=== PATIENT | male | born 1950 | race Caucasian/White ===

== ENCOUNTER → 2021-11-11 15:00 | Outpatient (BNVA) | payer MEDICARE, OTHER, SELFPAY | PROVIDERS: PCP Internal Medicine; Visit Provider Urology | DX: N40.1 Benign prostatic hyperplasia with lower urinary tract symptoms (principal); N13.8 Other obstructive and reflux uropathy; R39.12 Poor urinary stream; R35.1 Nocturia | CPT/HCPCS: 51798; 99212 ==

== ENCOUNTER → 2022-11-11 08:38 | Outpatient (BNVA) | payer OTHER, MEDICARE, SELFPAY | PROVIDERS: PCP Internal Medicine; Visit Provider Urology | DX: N40.1 Benign prostatic hyperplasia with lower urinary tract symptoms (principal); N13.8 Other obstructive and reflux uropathy; R39.12 Poor urinary stream; R35.1 Nocturia; Z12.5 Encounter for screening for malignant neoplasm of prostate; Z79.899 Other long term (current) drug therapy | CPT/HCPCS: 51798 ==

== ENCOUNTER 2023-05-17 10:30 | Outpatient (AMB) | payer MEDICARE, OTHER, SELFPAY ==
--- NOTE | 2023-05-17 10:43 | A.OFFVIS_ITS ---
Intake Intake Visit Reasons: 6m/PVR Intake Note: Patient is present for PVR Urology Med: Terazosin Antibiotic Allergy: None Blood Thinner: None PVR: 0ml [facility] Technician Required: No Accompanied by: Self / Same As Patient Allergies No Known Allergies Allergy (Verified 05/17/23 10:51) HPI HPI Comments History of Present Illness Details Roque JONES is a very pleasant male. He is a patient of Dr. Cody. He is seen for the following urologic conditions. - lower urinary tract symptoms Interested GreenLight laser Schedule procedure August Bladder ultrasound Lower Urinary Tract Symptoms:? Current visit is for?further evaluation of, lower urinary tract symptoms, predominate obstructive symptoms.? Current treatment includes?terazosin 5 mg - BP issues Main cannot increased dose ? Prior treatments include?Prior evaluation 2011 for hematuria - enlarged prostate ?- flomax - minimally useful ?- finasteride - useful but had endocrine side effects with tender breasts ? Prostate Symptom Score?18 Moderate (9-19), Bother 3 - PSA 03/23 1.6 ? Symptoms include?09/18 incomplete emptying, weak stream, straining, and are progressing.? Results from testing include? cystoscopy ?Enlarged median lobe 2011 - trabeculations 09/18 - trabeculations, enlarged prostate ? renal/bladder us ?Yes ? date ?04/02/2017 ? PVR ?50 ? prostate size ?50 ? Prostate volume?30-50gm.? Review of Systems Const Denies chills and Denies fever(s) Card Reports no additional complaints and Denies syncope Resp Denies cough GI Denies abdominal pain and Denies heartburn Reports as per HPI and Denies change in libido Neuro Denies syncope Psych Denies change in libido Endo Denies change in libido Physical Exam Const General: cooperative, healthy appearing, comfortable and no acute distress Orientation/consciousness: patient oriented x3 HEENT Face and sinus: Yes normal facial exam Mouth: moist mucous membranes Neck Neck: Yes normal visual inspection, Yes full ROM and Yes trachea midline Chest Chest palpation & inspection: normal inspection of the chest Resp Effort & Inspection: normal respiratory effort, able to speak in complete sentences and no respiratory distress GI Inspection: Yes normal to inspection Back/Spine/Pelvis Cervical Spine: normal cervical lordosis Thoracic/Lumbar Spine: thoracic and lumbar spine normal to inspection Skin General skin exam: no rashes or lesions noted Neuro General: patient oriented x3, gait normal, tone normal and moves all extremities Extrem General: Yes normal to inspection and Yes capillary refill normal Office Procedures Post Void Residual Post Residual Void Post Void Residual (PVR): 0 66324-Turh Void Residual by ultrasound Assessment & Plan Assessment & Plan (1) Nocturia more than twice per night: Code(s): R35.1 - Nocturia (2) Weak urinary stream: Code(s): R39.12 - Poor urinary stream (3) BPH w urinary obs/LUTS: Code(s): N40.1 - Benign prostatic hyperplasia with lower urinary tract symptoms; N13.8 - Other obstructive and reflux uropathy Plan We discussed the nature of the decision and reasonable options for performing a prostate intervention. Interventions include TURP, GreenLight laser enucleation of the prostate, GreenLight laser ablation of the prostate, transurethral incision of the prostate, and I-Tend prostate procedure. Options such as medical therapy were discussed. The relative uncertainties and benefits related to each alternate procedure were adequately discussed. General surgical risks including, but not limited to, pain, bleeding, infection, myocardial infarction, pulmonary embolus, deep vein thrombosis and cerebrovascular accident which may result in further hospitalization were discussed. Full disclosure of the procedure as well as all major risks, benefits and complications were discussed including but not limited to damage to the urethra or bladder neck, recurrent BPH, retrograde ejaculation, bladder infection, urge, de kathy frequency, incomplete emptying, dysuria, remote chance of erectile dysfunction, epididymitis, and meatal stenosis. The success rate of the procedure was discussed. Success of the procedure in the short-term does not necessarily guarantee that long-term success will be maintained. Suitable follow up will need to be maintained. The patient showed understanding of discussion. An opportunity was provided for questions to be answered and wishes to proceed with the following procedure. - GreenLight laser prostatectomy August Orders: Orders AMB Post Void Residual by ultrasound 05/17/23 N39.8 - Other specified disorders of urinary system Patient Instructions: Imaging studies, laboratory and physical exam results were discussed and reviewed in detail. No major barriers to patient understanding were identified. An opportunity to ask questions regarding the treatment plan was provided. All questions were answered. The patient expressed understanding and agreement with the above treatment plan. The patient is aware they should contact our office by phone for worsening of their current condition or the appearance of new urologic symptoms. Compliance is encouraged with any medications and followup testing that is ordered. It is a privilege to participate in the urologic care of your patient. If you have any questions or concerns regarding treatment for the above conditions, or other urologic issues, please do not hesitate to contact me. The office teleph one contact is [phone]. This note is constructed using voice recognition software. While every effort has been made to ensure accuracy turpentine distiller errors may have been included. Yours sincerely, Dr Dakota Uribe MD, MARTITA [facility] - Urology Providers of Expert, Compassionate Care for the Genitourinary System Coding Level of Care Code Est Pt Level 4 (87698) Diagnoses Nocturia more than twice per night R35.1 Weak urinary stream R39.12 BPH w urinary obs/LUTS N40.1; N13.8 CPT Codes Post Residual Void - PVR CPT Code: 88111-Ocnx Void Residual by ultrasound ([id number])
== END 2023-05-17 11:39 | disposition home or self-care (01) ==
PROVIDERS: Visit Provider Urology
DX: N40.1 Benign prostatic hyperplasia with lower urinary tract symptoms (principal); R35.1 Nocturia; R39.12 Poor urinary stream; N13.8 Other obstructive and reflux uropathy
CPT/HCPCS: 99214

== ENCOUNTER → 2023-05-17 10:30 | Outpatient (BNVA) | payer MEDICARE, OTHER, SELFPAY | PROVIDERS: Visit Provider Urology | DX: N40.1 Benign prostatic hyperplasia with lower urinary tract symptoms (principal); N13.8 Other obstructive and reflux uropathy; R35.1 Nocturia; R39.12 Poor urinary stream | CPT/HCPCS: 51798 ==

== ENCOUNTER 2023-07-19 11:15 | Outpatient (REF) | payer MEDICARE, OTHER, SELFPAY ==
--- NOTE | ~2023-07-19 | US_ITS ---
EXAMINATION: US PELVIS LIMITED (BLADDER) CLINICAL INFORMATION: Benign prostatic hyperplasia with lower urinary tract symptoms. COMPARISON: Ultrasound kidneys and bladder 05/02/2017. TECHNIQUE: Real-time imaging of the bladder. FINDINGS: BLADDER: Well distended with trabeculated klein with 2 bladder diverticula. Bilateral ureteral jets are demonstrated. Prevoid bladder volume is 188 mL. Postvoid bladder volume is 83.6 mL. Enlarged heterogeneous prostate, volume 44.5 mL containing 0.8 x 0.8 x 0.8 cm cyst. US/US bladder IMPRESSION: Enlarged heterogeneous prostate containing subcentimeter cyst. Trabeculated bladder with diverticula and 84 mL post void residual.
== END 2023-07-19 11:16 | disposition home or self-care (01) ==
LOC: HO.US 11:15
PROVIDERS: PCP Internal Medicine; Visit Provider Urology
DX: N40.1 Benign prostatic hyperplasia with lower urinary tract symptoms (principal); N13.8 Other obstructive and reflux uropathy
CPT/HCPCS: 76857

== ENCOUNTER 2023-07-20 15:36 | Outpatient (AMB) | payer MEDICARE, OTHER, SELFPAY ==
--- NOTE | 2023-07-20 15:38 | MHC.OFFVIS ---
Intake Intake Visit Reasons: H&P Greenlight laser(Surgery 08/08) Intake Note: Patient is Present for Telephone Follow Up H&P Greenlight Urology Med: Terazosin Antibiotic Allergy: None Blood Thinner:None Allergies No Known Allergies Allergy (Verified 08/08/23 06:15) Medication List - Last Reconciled 08/08/23 by Dakota Uribe MD amoxicillin 2,000 mg PO aspirin 81 mg PO DAILY phenazopyridine (Pyridium) 100 mg PO TID PRN 5 days terazosin 5 mg PO BEDTIME 90 days HPI HPI Comments History of Present Illness Details Roque JONES is a very pleasant male. He is a patient of Dr. Cody. He is seen for the following urologic conditions. - lower urinary tract symptoms Telemedicine Evaluation 15 min Consultation [employer] Video attempted Questions answered regarding procedure - Timing - Use of Catheter Bladder ultrasound completed with persistent trabeculation Lower Urinary Tract Symptoms:? Current visit is for?further evaluation of, lower urinary tract symptoms, predominate obstructive symptoms.? Current treatment includes?terazosin 5 mg - BP issues Main cannot increased dose ? Prior treatments include?Prior evaluation 2011 for hematuria - enlarged prostate ?- flomax - minimally useful ?- finasteride - useful but had endocrine side effects with tender breasts ? Prostate Symptom Score?3/18 Moderate (9-19), Bother 3 - PSA 20 1.6 ? Symptoms include?09/18 incomplete emptying, weak stream, straining, and are progressing.? Results from testing include? cystoscopy ?Enlarged median lobe 2011 - trabeculations 09/18 - trabeculations, enlarged prostate ? renal/bladder us ?Yes ? date ?04/02/2017 ? prostate size ?50 ? Prostate volume?30-50gm.? PFSH Medical History Shoulder pain with history of repair of rotator cuff Prostatism Numbness Right hamstring injury Diplopia Vision loss of right eye TIA (transient ischemic attack) Aneurysm of aortic root Aortic aneurysm, thoracic Back pain Right shoulder injury Varicose veins of both lower extremities Non-recurrent unilateral inguinal hernia without obstruction or gangrene IBS (irritable bowel syndrome) Erectile dysfunction Spondylosis of lumbar region without myelopathy or radiculopathy BPH (benign prostatic hyperplasia) Asthma Aortic root dilatation Arthritis Closed dislocation of right patella Aortic insufficiency Surgical History Hx of left inguinal hernia repair Hx of rotator cuff surgery History of bunionectomy of right great toe Hx of colonoscopy S/P aortic valve replacement Social History Patient Tobacco Use Status: Never used Tobacco Review of Systems Const All systems reviewed & are unremarkable except as noted in HPI and below Reports no additional complaints Resp Reports no additional complaints GI Reports no additional complaints Reports as per HPI Musc Reports no additional complaints Physical Exam Telemedicine evaluation Appropriate responses Regular breathing rate and rhythm HEENT Head: Yes normal to inspection Ears: hearing grossly normal bilaterally Eyes General: appearance normal, both eyes and all related structures Neck Neck: Yes normal visual inspection Chest Chest palpation & inspection: normal inspection of the chest Resp Effort & Inspection: normal respiratory effort and able to speak in complete sentences Assessment & Plan Assessment & Plan (1) BPH w urinary obs/LUTS: Code(s): N40.1 - Benign prostatic hyperplasia with lower urinary tract symptoms; N13.8 - Other obstructive and reflux uropathy (2) Nocturia more than twice per night: Code(s): R35.1 - Nocturia Plan Risks, benefits and alternatives to therapy were discussed. These include but are not limited to infection, bleeding, damage to local organs and tissues, need for further interventions. Anesthetic risks regarding cardiac arrhythmia, blood clots, and potential mortality were discussed. The patient understands the typical recovery time and the outpatient nature of the procedure. After consideration of these risks the patient gives full informed consent and they wish to move ahead with the procedure. Greenlight laser procedure Patient Instructions: Imaging studies, laboratory and physical exam results were discussed and reviewed in detail. No major barriers to patient understanding were identified. An opportunity to ask questions regarding the treatment plan was provided. All questions were answered. The patient expressed understanding and agreement with the above treatment plan. The patient is aware they should contact our office by phone for worsening of their current condition or the appearance of new urologic symptoms. Compliance is encouraged with any medications and followup testing that is ordered. It is a privilege to participate in the urologic care of your patient. If you have any questions or concerns regarding treatment for the above conditions, or other urologic issues, please do not hesitate to contact me. The office telephone contact is [phone]. This note is constructed using voice recognition software. While every effort has been made to ensure accuracy e commerce strategist errors may have been included. Yours sincerely, Dr Dakota Uribe MD, [facility] - Urology Providers of Expert, Compassionate Care for the Genitourinary System Telehealth Telehealth Location of provider rendering services: practice address Location of patient: address on file Patient Identification confirmed using: Name, : Yes Telehealth method: video Patient verbally consented to treatment: Yes Patient verbally consented to billing insurance company: Yes Patient informed of any privacy concerns related to visit: Yes Coding Level of Care Code Tele Est Pt Level 3 (46168) Diagnoses BPH w urinary obs/LUTS N40.1; N13.8 Nocturia more than twice per night R35.1
== END 2023-07-20 16:21 | disposition home or self-care (01) ==
LOC: HO.HUSH 15:36
PROVIDERS: PCP Internal Medicine; Visit Provider Urology
DX: N40.1 Benign prostatic hyperplasia with lower urinary tract symptoms (principal); N13.8 Other obstructive and reflux uropathy; R35.1 Nocturia
CPT/HCPCS: 99213

== ENCOUNTER → 2023-07-20 15:36 | Outpatient (BNVA) | payer MEDICARE, OTHER, SELFPAY | PROVIDERS: PCP Internal Medicine; Visit Provider Urology ==

== ENCOUNTER 2023-08-08 05:55 | Day surgery (SDC) | payer MEDICARE, OTHER, SELFPAY ==
[2023-08-04 07:37] VITALS: BMI 24.5
--- NOTE | 2023-08-05 10:49 | HO.ANESPROP2 ---
Documented by User: Adry Lee NP 08/05/23 11:35 HPI - Anesthesia Eval Consult details Narrative: 73yo M for Laser Ablation Prostate w/Green Light Cardiac cleared. Last office visit 06/2023. S/P AVR and aortic root repair 2018 [facility] Active Problems Active Problems: All Active Problems (Updated 08/04/23 @ 07:32 by Camila Miller RN) Nocturia more than twice per night (Acute) Weak urinary stream (Acute) BPH w urinary obs/LUTS (Acute) Past Medical History Medical History Shoulder pain with history of repair of rotator cuff Prostatism Numbness Right hamstring injury Diplopia Vision loss of right eye TIA (transient ischemic attack) Aneurysm of aortic root Aortic aneurysm, thoracic Back pain Right shoulder injury Varicose veins of both lower extremities Non-recurrent unilateral inguinal hernia without obstruction or gangrene IBS (irritable bowel syndrome) Erectile dysfunction Spondylosis of lumbar region without myelopathy or radiculopathy BPH (benign prostatic hyperplasia) Asthma Aortic root dilatation Arthritis Closed dislocation of right patella Aortic insufficiency Surgical History Surgical History Hx of left inguinal hernia repair Hx of rotator cuff surgery History of bunionectomy of right great toe Hx of colonoscopy S/P aortic valve replacement Social History Social History Patient Tobacco Use Status: Never used Tobacco Use of substances other than those prescribed or required for medical reasons: Yes Are you DNR?: No Advance Directives: No Advance Directives Information Provided: Yes Meds Allergies Allergy/AdvReac Type Severity Reaction Status Date / Time No Known Allergies Allergy Verified 08/08/23 06:15 Home Medications Medication Instructions Recorded Confirmed Last Taken Type amoxicillin 500 mg capsule 2,000 mg PO 08/04/23 08/04/23 Unknown History aspirin 81 mg tablet,delayed 81 mg PO DAILY 08/04/23 08/04/23 Unknown History release Exam Height,Weight and Vital Signs: Height 5 ft 11 in Weight 79.832 kg Narrative Narrative: EKG 06/2023 per cardiac note: NSR ECHO 04/2023 1. LV systolic function is nml with EF 55-60% 2. Diastolic filling pattern is nml 3. LA size nml 4. Nml function aoritc bioprosthetic valve 5. Mild mitral regurg 6. No evidence of pulmo htn 7. Aortic root @ 4.6cm Assessment and Plan Assessment Anesthesia Assessment: Chart Reviewed Documented by User: Jassi Claros MD 08/08/23 07:23 [facility] Past Medical History Medical History Shoulder pain with history of repair of rotator cuff Prostatism Numbness Right hamstring injury Diplopia Vision loss of right eye TIA (transient ischemic attack) Aneurysm of aortic root Aortic aneurysm, thoracic Back pain Right shoulder injury Varicose veins of both lower extremities Non-recurrent unilateral inguinal hernia without obstruction or gangrene IBS (irritable bowel syndrome) Erectile dysfunction Spondylosis of lumbar region without myelopathy or radiculopathy BPH (benign prostatic hyperplasia) Asthma Aortic root dilatation Arthritis Closed dislocation of right patella Aortic insufficiency Family History Family history of problems with anesthesia: No Surgical History Surgical History Hx of left inguinal hernia repair Hx of rotator cuff surgery History of bunionectomy of right great toe Hx of colonoscopy S/P aortic valve replacement History of Problems with Anesthesia: No Social History Social History Patient Tobacco Use Status: Never used Tobacco Use of substances other than those prescribed or required for medical reasons: Yes Are you DNR?: No Advance Directives: No Advance Directives Information Provided: Yes Meds Allergies Allergy/AdvReac Type Severity Reaction Status Date / Time No Known Allergies Allergy Verified 08/08/23 06:15 Home Medications Medication Instructions Recorded Confirmed Last Taken Type amoxicillin 500 mg capsule 2,000 mg PO 08/04/23 08/04/23 Unknown History aspirin 81 mg tablet,delayed 81 mg PO DAILY 08/04/23 08/04/23 Unknown History release Exam Airway Mallampati Class: II TM Dist: >3cm Neck ROM: Full Loose/Missing/Broken Teeth: No Heart: [id number] Lungs: cta b/l Assessment and Plan Assessment Anesthesia Assessment: Anesthesia Plan Discussed Final Anesthetic Review Family History of Problems with Anesthesia: No History of Problems with Anesthesia: No NPO: Yes ASA Class: II Final Preanesthetic Review: No Changes in Pt Med Stat, Meds/Allgs Chart Reviewed, Consent Obtained/Reviewed and Anes Risks/Benef Reviewed Patient Risk: Intermediate Procedure Risk: Intermediate Assessment/Block/Sedation in SS: Assess/Block/Sedation-SS Anesthetic Plan Anesthetic Plan: GA and Agree w/ Assess. and Plan Disposition: Standard PACU
[2023-08-08 06:14] VITALS: BMI 25.0
[2023-08-08 06:27] VITALS: BP 135/65; PULSE 63; RESP 16; TEMP 36.9; O2SAT 98
[2023-08-08] MEDS: Lactated Ringers 1,000 ML 100 ML IVCONT (06:40)
--- NOTE | 2023-08-08 07:42 | MHC.SHP ---
Pre-Procedural Eval Section A - 24 Hr Update-Section A only Date of Service: 08/08/23 The patient is an INPATIENT: No Changes since office visit: No Cold of Flu in the past 2 weeks, No New Medical Problems, No Changes in Medication and No Patient answered all questions The patient has been examined within 24 hours of the surgical procedure. The History & Physical has been completed within 30 days and I have reviewed it.: No Section B - Complete if H&P > 30 days Chief Complaint: Benign prostatic hyperplasia with lower urinary tr Relevant Social History: None Present Medications: see Short Stay Collaborative assessment Medical History: No relevant PMH History of Previous Operations: No relevant previous surgery Allergies: Allergies Allergy/AdvReac Type Severity Reaction Status Date / Time No Known Allergies Allergy Verified 08/08/23 06:15 Review of Systems Sugical H&P ROS: Negative: Constitution, Cardiovascular, Respiratory, Neurological, Psychiatric, Hem-Onc, Allergic/Immunologic, Gastrointestinal, Genitourinary, Musculoskeletal, Integumentary, Endocrine and Eyes/Ears/Nose/Throat Exam Surgical H&P Exam: Normal: HEENT, Normal: Heart, Normal: Lungs, Normal: Extremities, Normal: Abdomen, Normal: Skin and Normal: Neurological Plan Diagnosis/Plan: Unchanged (laser prostatectomy) I have reviewed the history and physical and performed a pertinent physical examination on my patient. No changes have occurred unless specified. Time Spent With Patient Time: Total time managing care of this patient today ____ minutes.
--- NOTE | 2023-08-08 08:38 | P.OP_ITS ---
Operative Note Operative Note Date of Service: 08/08/23 Narrative: PreOperative Diagnosis: Bladder outlet obstruction Post Operative Diagnosis: Bladder outlet obstruction Procedure: GreenLight Laser Enucleation of the prostate CPT 19958 Surgeon: Dr Dakota Uribe Anesthesia: General Indications for procedure: Failed medical therapy History of bladder outlet obstruction. Treated with alpha-janel and other medications. Still with symptoms. On cystoscopy in office has prominent median lobe. Recommendation for prostate procedure with laser enucleation of prostate. Risks and benefits have been discussed. Focus was placed on development of retrograde ejaculation which is a normal part of this procedure. Procedure: After informed consent was verified the patient was brought to the operating room and placed in a supine position. Anesthesia was administered per protocol. Patient was placed in modified dorsal lithotomy position and prepped and draped in a sterile fashion. Safety pause time-out was confirmed. Antibiotics have been given. A Twenty-four Hungarian laser cystoscope was inserted per urethra. No abnormalities were found of the anterior and bulbar urethra. The bladder was examined and both ureteric orifices were seen in their normal positions away fro m the area of interest. The anatomy of the prostate was such that toward the bladder neck he had redundant mucosa and the ureteric orifice fell into the upper portion of the prostatic fossa. Care was taken to ensure that the bladder was fully dilated with fluid in order to move the ureteric orifice out of the potential operative field. Coordination with anesthesia was required in order to have the bladder appropriately relaxed. Using a GreenLight laser with settings of 80 w incisions were made at the 5 and 7 o'clock position. The incisions were taken down from the bladder neck down to the level of the veru. These were gradually deepened in order to define the lateral aspects of the median lobe area. Once clearly defined they will also extended in the lateral directions in order to create a deep groove. The median lobe was then ablated and enucleated tissue released into the bladder with the laser power increased to 120 W. This was performed quite carefully as the tissue was redundant infolding in a variant fashion. Once the median lobe had been removed due to the shape of the bladder and bladder neck decision was made not to proceed with lateral lobe removal as these were not impinging on the prostatic fossa area When this was had been completed debris and pieces of prostate were removed from the bladder with irrigation. Both ureteric orifices were reviewed again in shown to be patent in away from any areas of energy damage. The apical area was reviewed in any stray ooze was controlled. A 22 Hungarian 30 cc balloon Monk catheter was placed over a stylet into the bladder. Clear efflux was obtained upopn irrigation with a Cruz piston syringe. 30 cc was placed in the balloon and gentle traction was placed. A snap was used to hold tension on the catheter to control bleeding during patient moved and transported. A drainage bag was placed. Once transportation is complete to the PACU the snap will be removed. The patient tolerated the procedure well, he was extubated in the operating and transferred in a stable condition to the recovery area. Total Power 86 kW Lasing time 16:30 Pathology: Prostate tissue Drains: Monk catheter
[2023-08-08 08:44] VITALS: BP 105/50; PULSE 67; RESP 16; TEMP 36.4; O2SAT 95
[2023-08-08 08:49] VITALS: BP 91/48; PULSE 64; RESP 16; O2SAT 96
[2023-08-08 08:54] VITALS: BP 92/54; PULSE 59; RESP 18; O2SAT 97
[2023-08-08 08:59] VITALS: BP 109/61; PULSE 59; RESP 18; O2SAT 97
[2023-08-08] MEDS: Phenazopyridine HCL 100 MG TABLET PO (09:04)
[2023-08-08 09:14] VITALS: BP 114/57; PULSE 58; RESP 18; TEMP 36.6; O2SAT 100
--- NOTE | 2023-08-08 10:08 | PC.NURSE ---
patiet aware to f/u with dr. mensah on for catheter removal.
== END 2023-08-08 10:08 | disposition home or self-care (01) ==
PROVIDERS: PCP Internal Medicine; Visit Provider Urology
PROC: (CPT 52648; principal; 2023-08-08 07:30)
DX: N40.1 Benign prostatic hyperplasia with lower urinary tract symptoms (principal); N32.0 Bladder-neck obstruction; R35.1 Nocturia; R39.12 Poor urinary stream; N13.8 Other obstructive and reflux uropathy; J45.909 Unspecified asthma, uncomplicated; Z86.73 Personal history of transient ischemic attack (TIA), and cerebral infarction without residual deficits; Z79.899 Other long term (current) drug therapy
CPT/HCPCS: 52649; 88305; J1956; J2405; J2704; J3010

== ENCOUNTER → 2023-08-08 05:55 | Outpatient (BNV) | payer MEDICARE, OTHER, SELFPAY | PROVIDERS: PCP Internal Medicine; Visit Provider Urology | DX: N40.1 Benign prostatic hyperplasia with lower urinary tract symptoms (principal) | CPT/HCPCS: 52649 ==

== ENCOUNTER → 2023-08-10 11:06 | Outpatient (BNVA) | payer MEDICARE, OTHER, SELFPAY | PROVIDERS: PCP Internal Medicine; Visit Provider Urology ==

== ENCOUNTER 2023-09-16 11:51 | Outpatient (AMB) | payer MEDICARE, OTHER, SELFPAY ==
--- NOTE | 2023-09-16 11:58 | A.OFFVIS_ITS ---
Intake Intake Visit Reasons: Greenlight Post Op (08/08) Intake Note: Patient Is Present for Post Op Follow up Procedure Done: greenlight Urology Med: Terazosin, Oxybutynin Antibiotic Allergy:None Blood Thinner: Aspirin PVR: 0ml Allergies No Known Allergies Allergy (Verified 09/16/23 12:00) Medication List - Last Reconciled 09/16/23 by Dakota Uribe MD amoxicillin 2,000 mg PO aspirin 81 mg PO DAILY oxybutynin chloride ER 5 mg PO DAILY 14 days phenazopyridine (Pyridium) 100 mg PO TID PRN 5 days terazosin 5 mg PO BEDTIME 90 days HPI HPI Comments History of Present Illness0 Details Roque JONES is a very pleasant male. He is a patient of Dr. Cody. He is seen for the following urologic conditions. - lower urinary tract symptoms - erectile dysfunction Follow-up 6 weeks GreenLight laser procedure. PVR 0. Very happy with outcome and emptying Pathology negative Six-month follow-up PSA 08/27 GreenLight procedure Erectile dysfunction Has been present previously Would like to try on demand tadalafil Lower Urinary Tract Symptoms:? Current visit is for?further evaluation of, lower urinary tract symptoms, predominate obstructive symptoms.? Current treatment includes?terazosin 5 mg - BP issues Main cannot increased dose ? Prior treatments include?Prior evaluation 2011 for hematuria - enlarged prostate ?- flomax - minimally useful ?- finasteride - useful but had endocrine side effects with tender breasts ? Prostate Symptom Score?09/18 Moderate (9-19), Bother 3 - PSA 03/23 1.6 ? Symptoms include?09/18 incomplete emptying, weak stream, straining, and are progressing.? Results from testing include? cystoscopy ?Enlarged median lobe 2011 - trabeculations 09/18 - trabeculations, enlarged prostate ? renal/bladder us ?Yes ? date ?04/02/2017 ? prostate size ?50 ? Prostate volume?30-50gm.? [facility] Medical History (Updated 09/16/23 @ 12:23 by Dakota Uribe MD) Shoulder pain with history of repair of rotator cuff Prostatism Numbness Right hamstring injury Diplopia Vision loss of right eye TIA (transient ischemic attack) Aneurysm of aortic root Aortic aneurysm, thoracic Back pain Right shoulder injury Varicose veins of both lower extremities Non-recurrent unilateral inguinal hernia without obstruction or gangrene IBS (irritable bowel syndrome) Erectile dysfunction Spondylosis of lumbar region without myelopathy or radiculopathy BPH (benign prostatic hyperplasia) Asthma Aortic root dilatation Arthritis Closed dislocation of right patella Aortic insufficiency Surgical History Hx of left inguinal hernia repair Hx of rotator cuff surgery History of bunionectomy of right great toe Hx of colonoscopy S/P aortic valve replacement Social History Patient Tobacco Use Status: Never used Tobacco Review of Systems Const Denies chills and Denies fever(s) Card Reports no additional complaints and Denies syncope Resp Denies cough GI Denies abdominal pain and Denies heartburn Reports as per HPI and Denies change in libido Neuro Denies syncope Psych Denies change in libido Endo Denies change in libido Physical Exam Const General: cooperative, healthy appearing, comfortable and no acute distress Orientation/consciousness: patient oriented x3 HEENT Face and sinus: Yes normal facial exam Mouth: moist mucous membranes Neck Neck: Yes normal visual inspection, Yes full ROM and Yes trachea midline Chest Chest palpation & inspection: normal inspection of the chest Resp Effort & Inspection: normal respiratory effort, able to speak in complete sentences and no respiratory distress GI Inspection: Yes normal to inspection Back/Spine/Pelvis Cervical Spine: normal cervical lordosis Thoracic/Lumbar Spine: thoracic and lumbar spine normal to inspection Skin General skin exam: no rashes or lesions noted Neuro General: patient oriented x3, gait normal, tone normal and moves all extremities Extrem General: Yes normal to inspection and Yes capillary refill normal Office Procedures Post Void Residual Post Residual Void Post Void Residual (PVR): 0 [id number] Void Residual by ultrasound Assessment & Plan Assessment & Plan (1) Nocturia more than twice per night: Code(s): R35.1 - Nocturia (2) BPH w urinary obs/LUTS: Code(s): N40.1 - Benign prostatic hyperplasia with lower urinary tract symptoms; N13.8 - Other obstructive and reflux uropathy (3) Erectile dysfunction: Code(s): N52.9 - Male erectile dysfunction, unspecified Plan Six-month follow-up Trial tadalafil Orders: Orders Prostate Specific Antigen 6 Months N13.8 - Other obstructive and reflux uropathy, N40.1 - Benign prostatic hyperplasia with lower urinary tract symptoms AMB Post Void Residual by ultrasound Today N13.8 - Other obstructive and reflux uropathy, N40.1 - Benign prostatic hyperplasia with lower urinary tract symptoms Medications: New tadalafil On demand medication take 60 minutes before intended activity 20 mg PO ONCE PRN 30 tabs 0RF sexual activity 30 days N52.9 - Male erectile dysfunction, unspecified Discontinued phenazopyridine (Pyridium) Discontinued Reason: Patient Completed Course 100 mg PO TID 5 days PRN 15 tabs 0RF pain oxybutynin chloride ER Discontinued Reason: Patient Completed Course 5 mg PO DAILY 14 days 14 tabs 0RF N13.8 - Other obstructive and reflux uropathy, N32.81 - Overactive bladder, N40.1 - Benign prostatic hyperplasia with lower urinary tract symptoms Patient Instructions: Imaging studies, laboratory and physical exam results were discussed and reviewed in detail. No major barriers to patient understanding were identified. An opportunity to ask questions regarding the treatment plan was provided. All questions were answered. The patient expressed understanding and agreement with the above treatment plan. The patient is aware they should contact our office by phone for worsening of their current condition or the appearance of new urologic symptoms. Compliance is encouraged with any medications and followup testing that is ordered. It is a privilege to participate in the urologic care of your patient. If you have any questions or concerns regarding treatment for the above conditions, or other urologic issues, please do not hesitate to contact me. The office telephone contact is [phone]. This note is constructed using voice recognition software. While every effort has been made to ensure accuracy tree trimming supervisor errors may have been included. Yours sincerely, Dr Dakota Uribe MD, [facility] - Urology Providers of Expert, Compassionate Care for the Genitourinary System Coding Level of Care Code Est Pt Level 4 (19909) Diagnoses Nocturia more than twice per night R35.1 BPH w urinary obs/LUTS N40.1; N13.8 Erectile dysfunction N52.9 CPT Codes Post Residual Void - PVR CPT Code: 89586-Qdzb Void Residual by ultrasound ([id number])
== END 2023-09-16 12:27 | disposition home or self-care (01) ==
PROVIDERS: PCP Internal Medicine; Visit Provider Urology
DX: N40.1 Benign prostatic hyperplasia with lower urinary tract symptoms (principal); R35.1 Nocturia; N13.8 Other obstructive and reflux uropathy; N52.9 Male erectile dysfunction, unspecified
CPT/HCPCS: 99024

== ENCOUNTER → 2023-09-16 11:51 | Outpatient (BNVA) | payer MEDICARE, OTHER, SELFPAY | PROVIDERS: PCP Internal Medicine; Visit Provider Urology | DX: N40.1 Benign prostatic hyperplasia with lower urinary tract symptoms (principal); N13.8 Other obstructive and reflux uropathy; N52.9 Male erectile dysfunction, unspecified; R35.1 Nocturia; Z79.82 Long term (current) use of aspirin; Z79.899 Other long term (current) drug therapy | CPT/HCPCS: 51798; 99212 ==

== ENCOUNTER 2024-03-16 09:47 | Outpatient (AMB) | payer MEDICARE, OTHER, SELFPAY ==
--- NOTE | 2024-03-16 09:50 | A.OFFVIS_ITS ---
Intake Visit Reasons: 6M Follow up-Med Review(Needs PSA) Intake Note: Patient Is Present for Post Op Follow up Procedure Done: greenlight Urology Med: Terazosin, TADALAFIL Antibiotic Allergy:None Blood Thinner: Aspirin Lozenge Dough Mixer Required: No Allergies No Known Allergies Allergy (Verified 03/16/24 09:51) HPI Comments Details: Roque JONES is a very pleasant male. He is a patient of Dr. Cody. He is seen for the following urologic conditions. - lower urinary tract symptoms - erectile dysfunction Six-month follow-up 08/27 GreenLight procedure Flow has slowed but still emptying Uses on demand tadalafil occasionally Otherwise happy with current symptoms 12 month follow-up Erectile dysfunction Has been present previously On demand tadalafil Lower Urinary Tract Symptoms:? Current visit is for?further evaluation of, lower urinary tract symptoms, predominate obstructive symptoms.? Current treatment includes?terazosin 5 mg - BP issues Main cannot increased dose ? Prior treatments include?Prior evaluation 2011 for hematuria - enlarged prostate ?- flomax - minimally useful ?- finasteride - useful but had endocrine side effects with tender breasts ? Prostate Symptom Score?3/18 Moderate (9-19), Bother 3 - PSA 03/23 1.6 ? Symptoms include?09/18 incomplete emptying, weak stream, straining, and are progressing.? Results from testing include? cystoscopy ?Enlarged median lobe 2011 - trabeculations 09/18 - trabeculations, enlarged prostate ? renal/bladder us ?Yes ? date ?04/02/2017 ? prostate size ?50 ? Prostate volume?30-50gm.? [facility] Medical History (Updated 09/16/23 @ 12:23 by Dakota Uribe MD) Shoulder pain with history of repair of rotator cuff Prostatism Numbness Right hamstring injury Diplopia Vision loss of right eye TIA (transient ischemic attack) Aneurysm of aortic root Aortic aneurysm, thoracic Back pain Right shoulder injury Varicose veins of both lower extremities Non-recurrent unilateral inguinal hernia without obstruction or gangrene IBS (irritable bowel syndrome) Erectile dysfunction Spondylosis of lumbar region without myelopathy or radiculopathy BPH (benign prostatic hyperplasia) Asthma Aortic root dilatation Arthritis Closed dislocation of right patella Aortic insufficiency Surgical History Hx of left inguinal hernia repair Hx of rotator cuff surgery History of bunionectomy of right great toe Hx of colonoscopy S/P aortic valve replacement Social History Patient Tobacco Use Status: Never used Tobacco Review of Systems Const Denies chills and Denies fever(s) Card Reports no additional complaints and Denies syncope Resp Denies cough GI Denies abdominal pain and Denies heartburn Reports as per HPI and Denies change in libido Neuro Denies syncope Psych Denies change in libido Endo Denies change in libido Physical Exam Const General: cooperative, healthy appearing, comfortable and no acute distress Orientation/consciousness: patient oriented x3 HEENT Face and sinus: Yes normal facial exam Mouth: moist mucous membranes Neck Neck: Yes normal visual inspection, Yes full ROM and Yes trachea midline Chest Chest palpation & inspection: normal inspection of the chest Resp Effort & Inspection: normal respiratory effort, able to speak in complete sentences and no respiratory distress GI Inspection: Yes normal to inspection Back/Spine/Pelvis Cervical Spine: normal cervical lordosis Thoracic/Lumbar Spine: thoracic and lumbar spine normal to inspection Skin General skin exam: no rashes or lesions noted Neuro General: patient oriented x3, gait normal, tone normal and moves all extremities Extrem General: Yes normal to inspection and Yes capillary refill normal Results AMB Urinalysis, Automated UA Leukoctes 01 Mary/uL Last Edit by APURVA Wagoner on 03/16/24 10:01 UA Nitrite Negative Last Edit by APURVA Wagoner on 03/16/24 10:01 UA Urobilinogen 0.2 mg/dL Last Edit by APURVA Wagoner on 03/16/24 10:0 1 UA Protein 15 mg/dL Last Edit by APURVA Wagoner on 03/16/24 10:01 UA pH 6.5 Last Edit by APURVA Wagoner on 03/16/24 10:01 UA Blood 0 Santino/uL Last Edit by APURVA Wagoner on 03/16/24 10:01 UA Specific Hooper 1.015 Last Edit by APURVA Wagoner on 03/16/24 10: 01 UA Ketone Negative Last Edit by APURVA Wagoner on 03/16/24 10:01 UA Bilirubin 0 mg/dL Last Edit by APURVA Wagoner on 03/16/24 10:01 UA Glucose 0 mg/dL Last Edit by APURVA Wagoner on 03/16/24 10:01 Results Reviewed Results Reviewed: Laboratory Last Values Urine pH (Auto) 6.5 03/16/24 10:00 Specific Hooper (Auto) 1.015 03/16/24 10:00 Urine Protein (Auto) 15 mg/dL 03/16/24 10:00 Glucose (UA)(Auto) 0 mg/dL 03/16/24 10:00 Urine Ketones (Auto) Negative 03/16/24 10:00 Urine Blood (Auto) 0 Santino/uL 03/16/24 10:00 Urine Nitrite (Auto) Negative 03/16/24 10:00 Urine Bilirubin (Auto) 0 mg/dL 03/16/24 10:00 Urine Urobilinogen (Auto) 0.2 mg/dL 03/16/24 10:00 Leukocyte Esterase (Auto) 01 Mary/uL 03/16/24 10:00 Assessment & Plan Assessment & Plan (1) Erectile dysfunction: Code(s): N52.9 - Male erectile dysfunction, unspecified Category: Medical (2) Nocturia more than twice per night: Code(s): R35.1 - Nocturia Category: Medical (3) BPH w urinary obs/LUTS: Code(s): N40.1 - Benign prostatic hyperplasia with lower urinary tract symptoms; N13.8 - Other obstructive and reflux uropathy Category: Medical Plan Twelve month follow-up Orders: Orders AMB Urinalysis Automated 03/16/24 Z13.9 - Encounter for screening, unspecified Patient Instructions: Imaging studies, laboratory and physical exam results were discussed and reviewed in detail. No major barriers to patient understanding were identified. An opportunity to ask questions regarding the treatment plan was provided. All questions were answered. The patient expressed understanding and agreement with the above treatment plan. The patient is aware they should contact our office by phone for worsening of their current condition or the appearance of new urologic symptoms. Compliance is encouraged with any medications and followup testing that is ordered. It is a privilege to participate in the urologic care of your patient. If you have any questions or concerns regarding treatment for the above conditions, or other urologic issues, please do not hesitate to contact me. The office telephone contact is [phone]. This note is constructed using voice recognition software. While every effort has been made to ensure accuracy electroencephalograph technologist errors may have been included. Yours sincerely, Dr Dakota Uribe MD, [facility] - Urology Providers of Expert, Compassionate Care for the Genitourinary System Coding Level of Care Code Est Pt Level 3 (68535) Diagnoses Erectile dysfunction N52.9 Nocturia more than twice per night R35.1 BPH w urinary obs/LUTS N40.1; N13.8
== END 2024-03-16 10:55 | disposition home or self-care (01) ==
PROVIDERS: PCP Internal Medicine; Visit Provider Urology
DX: N40.1 Benign prostatic hyperplasia with lower urinary tract symptoms (principal); N52.9 Male erectile dysfunction, unspecified; R35.1 Nocturia; N13.8 Other obstructive and reflux uropathy
CPT/HCPCS: 99213

== ENCOUNTER → 2024-03-16 09:47 | Outpatient (BNVA) | payer MEDICARE, OTHER, SELFPAY | PROVIDERS: PCP Internal Medicine; Visit Provider Urology | DX: N40.1 Benign prostatic hyperplasia with lower urinary tract symptoms (principal); N13.8 Other obstructive and reflux uropathy; N52.9 Male erectile dysfunction, unspecified; R35.1 Nocturia | CPT/HCPCS: 81003; 99212 ==

== ENCOUNTER 2025-04-02 13:33 | Outpatient (AMB) | payer MEDICARE, OTHER, SELFPAY ==
--- NOTE | 2025-04-02 13:31 | A.OFFVIS_ITS ---
Intake Visit Reasons: 1y/PSA/PVR Intake Note: Patient Is Present for 1 yr follow up Urology Med: Terazosin, TADALAFIL, TERAZOSIN Antibiotic Allergy:None Blood Thinner: Aspirin PVR:20 mls Labs done 03/25/25 :PSA 2.13 Laboratory Technology Teacher Required: No Accompanied by: Self / Same As Patient Allergies No Known Allergies Allergy (Verified 04/02/25 13:32) HPI Comments Details: Roque JONES is a very pleasant male. He is a patient of Dr. Cody. He is seen for the following urologic conditions. - lower urinary tract symptoms - erectile dysfunction One year follow-up from procedure PVR 20 cc PSA 2.1 Erectile dysfunction Has been present previously On demand tadalafil Lower Urinary Tract Symptoms:? Current visit is for?further evaluation of, lower urinary tract symptoms, predominate obstructive symptoms.? Current treatment includes?terazosin 5 mg - BP issues Main cannot increased dose ? Prior treatments include?Prior evaluation 2011 for hematuria - enlarged prostate ?- flomax - minimally useful ?- finasteride - useful but had endocrine side effects with tender breasts ? Prostate Symptom Score?09/18 Moderate (9-19), Bother 3 - PSA 03/23 1.6, 03/28 2.1 ? Symptoms include?09/18 incomplete emptying, weak stream, straining, and are progressing.? Results from testing include? cystoscopy ?Enlarged median lobe 2011 - trabeculations 09/18 - trabeculations, enlarged prostate ? renal/bladder us ?Yes ? date ?04/02/2017 ? prostate size ?50 ? Prostate volume?30-50gm.? [facility] Medical History (Updated 09/16/23 @ 12:23 by Dakota Uribe MD) Shoulder pain with history of repair of rotator cuff Prostatism Numbness Right hamstring injury Diplopia Vision loss of right eye TIA (transient ischemic attack) Aneurysm of aortic root Aortic aneurysm, thoracic Back pain Right shoulder injury Varicose veins of both lower extremities Non-recurrent unilateral inguinal hernia without obstruction or gangrene IBS (irritable bowel syndrome) Erectile dysfunction Spondylosis of lumbar region without myelopathy or radiculopathy BPH (benign prostatic hyperplasia) Asthma Aortic root dilatation Arthritis Closed dislocation of right patella Aortic insufficiency Surgical History Hx of left inguinal hernia repair Hx of rotator cuff surgery History of bunionectomy of right great toe Hx of colonoscopy S/P aortic valve replacement Social History Patient Tobacco Use Status: Never used Tobacco Office Procedures Post Void Residual Post Residual Void Post Void Residual (PVR): 20 [id number] Void Residual by ultrasound Assessment & Plan Assessment & Plan Orders: Orders AMB Post Void Residual by ultrasound Today N13.8 - Other obstructive and reflux uropathy, N40.1 - Benign prostatic hyperplasia with lower urinary tract symptoms, R35.1 - Nocturia, R39.12 - Poor urinary stream Prostate Specific Antigen 12 Months N13.8 - Other obstructive and reflux uropathy, N40.1 - Benign prostatic hyperplasia with lower urinary tract symptoms AMB Urinalysis Automated Today N13.8 - Other obstructive and reflux uropathy, N40.1 - Benign prostatic hyperplasia with lower urinary tract symptoms, R35.1 - Nocturia, R39.12 - Poor urinary stream Coding CPT Codes Post Residual Void - PVR CPT Code: 77759-[id number] Void Residual by ultrasound ([id number])
--- OUTSIDE RECORDS SUMMARY | 2025-04-02 14:49 | XMS_ITS | Encounter Summary ---
Author Organization [facility]erg[facility] Address [address] [place] [id number] Phone Care Team Providers Care Sql Architect Name Role Phone Dakota Uribe MD Unavailable Filiberto Rivera MD Unavailable Jose Cunningham MD Primary Care Provider [phone] Encounter Details Date Type Department Care Team (Late st Contact Info) Description 10/01/2024 Procedure Pass [facility] [address] [place] [address] Social History Tobacco Use Types Packs/Day Years Used Date Smoking Tobacco: Never Smokeless Tobacco: Never Alcohol Use Standard Drinks/Week Comments Yes 2 (1 standard drink = 0.6 oz pur e alcohol) Education Answer Date Recorded Are you interested in more education? Not on kal e 10/28/2022 Are you concerned about learning? Not on file 10/28/2022 No 10/28/2022 No 10/28/2022 Digital Access Answer Date Recorded No 11/29/2022 No 11/29/2022 Reliable internet access at home? Not on file 11/29/2022 Device with a working camera? Not on file Intimate Partner Violence Answer Date R ecorded Denied Basic Needs Not on file 08/21/2024 In the past 12 months have y ou been in a relationship with a person who hurts, threatens, or tries to control you? No 08/21/2024 Worried food would run out Not on file 08/21 In the past 12 months have y ou been in a relationship with a person who hurts, threatens, or tries to control you? 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 Not on file Not on file N ot on file documented as of this encounter Plan of Treatment Upcoming Encounters Date Type Department Care Team (Late st Contact Info) Description 06/04/2024 Procedure Pass [facility] [address] [place] [address] 02/01/2025 Procedure Pass [facility] Cardiovascular And Interventional Radiology [address] [place] [id number] 04/08/2025 10:30 AM EDT Appointment Echo [facility] [address] [place] [address] Filiberto Rivera MD [address] [place] [address], [address] [id number] Rony Tierney MD [address] [place] [phone] 04/12/2025 7:30 AM EDT Appointment [facility] Cardiovascular And Interventional Radiology [address] [place] [id number] Rony Tierney MD [address] [place] [phone] 05/06/2025 12:40 PM EST Office Visit [facility] [address] [place] [address] Dr [address] Floor, [address] [address] Rony Tierney MD [address] [place] [phone] 06/14/2025 12:45 PM EST Office Visit [facility] [address] [place] [address] Unknown, Unknown, Ana Liu, WASH DRILLER HELPER [address] [place] [address] [email or web address] documented as of this encounter Visit Diagnoses Not on filedocumented in this encounter Additional Health Concerns Assessment Noted Time PHQ-2 Depression Total Score: 0 08/21/19 25 11:09 AM EST documented as of this encounter Care Teams Sql Architect Relationship Specialty Start Date End Date Jose Cunningham MD [address] [place] [address], [address] [place] [address] [email or web address] PCP - General Internal Medicine 03/14/20 Dakota Uribe MD Urology 05/23/19 Filiberto Rivera MD [address] [place] [address], [address] [place] [address] [email or web address] Social Welfare Administrator Cardiology 05/23/19 documented as of this encounter Additional Source Comments The information contained in this document represents components of the legal health record. It is not the complete legal health record.[facility]
--- OUTSIDE RECORDS SUMMARY | 2025-04-02 14:49 | XMS_ITS | Encounter Summary ---
Author Organization [facility] Address [address] [place] [address] Phone Care Team Providers Care Automotive Internet Sales Manager Name Role Phone Dakota Uribe MD Unavailable [phone] Filiberto Rivera MD Unavailable [phone] Jose Cunningham MD Primary Care Provider [phone] Doris David RN Unavailable [email or web address] Encounter Details Date Type Department Care Team (Late st Contact Info) Description 03/17/2020 Procedure Pass [facility] [address] [place] [address] Social History Tobacco Use Types Packs/Day Years Used Date Smoking Tobacco: Never Smokeless Tobacco: Never Alcohol Use Standard Drinks/Week Comments Yes 2 (1 standard drink = 0.6 oz pur e alcohol) Sex and Gender Information Value Date Recorded [...] Encounters Date Type Department Care Team (Late Contact Info) Description 06/04/2024 Procedure Pass [facility] [address] [place] [address] 02/01/2025 Procedure Pass [facility] 30 [place] [address] 04/08/2025 10:30 AM EDT Appointment [facility] [address] [place] [address] Filiberto Rivera MD [address] [place] [address], [address] [address] Rony Tierney MD [address] [place] [address] 04/12/2025 7:30 AM EDT Appointment [facility] [address] [place] [address] Rony Tierney MD [address] [place] [address] 05/06/2025 12:40 PM EST Office Visit [facility] [address] [place] [address] 3rd Floor, [address] [address] Rony Tierney MD [address] [place] [address] 06/14/2025 12:45 PM EST Office Visit [facility] [address] [place] [address] Unknown, Unknown, Ana Liu, FILLER MACHINE OPERATOR 10 [place] [address] documented as of this encounter Visit Diagnoses Not on filedocumented in this encounter Additional Health Concerns Infection Onset Date Last Indicated Resolved Time CoV-Risk Comment:Per Ambulatory Triage Form 06/22/2022 06/22/202206/22 2:47 PM EST CoV-Presumed 06/22/2022 06/22/2022 2022 1:21 AM EST Assessment Noted Time PHQ-2 Depression Total Score: 0 01/17/20 20 4:29 PM EDT documented as of this encounter Care Teams Automotive Internet Sales Manager Relationship Specialty Start Date End Date Jose Cunningham MD [address] [place] [address], [address] [place] [address] [email or web address] PCP - General Internal Medicine 03/14/20 Dakota Uribe MD Urology 05/23/19 Filiberto Rivera MD [address] [place] [address], [address] [place] [address] [email or web address] All Round Butcher Cardiology 05/23/19 Doris David RN [address] [place] [address], [address] [place] [address] [email or web address] Whiteprinting Machine Operator 11/22/22 documented as of this encounter Additional Source Comments The information contained in this document represents components of the legal health record. It is not the complete legal health record.[facility]
--- OUTSIDE RECORDS SUMMARY | 2025-04-02 14:49 | XMS_ITS | Encounter Summary ---
Author Organization [facility] Address [address] [place] [address] Phone Care Team Providers Care Bumper Straightener Name Role Phone Dakota Uribe MD Unavailable Filiberto Rivera MD Unavailable [phone] Jose Cunningham MD Primary Care Provider [phone] Encounter Details Date Type Department Care Team (Late st Contact Info) Description 09/17/2024 Procedure Pass [facility] 30 [place] [address] Social History Tobacco Use Types Packs/Day Years [...] Info) Description 06/04/2024 Procedure Pass [facility] [address] [place] [address] 02/01/2025 Procedure Pass [facility] Cardiovascular And Interventional Radiology [address] [place] [address] 04/08/2025 10:30 AM EDT Appointment [facility] [address] [place] [address] Filiberto Rivera MD [address] [place] [address], [address] [address] Rony Tierney MD [address] [place] [address] 04/12/2025 7:30 AM EDT Appointment [facility] Cardiovascular And Interventional Radiology [address] [place] [address] Rony Tierney MD [address] [place] [address] 05/06/2025 12:40 PM EST Office Visit [facility] [address] [place] [address] Dr 3rd Floor, [address] [address] Rony Tierney MD [address] [place] [address] 06/14/2025 12:45 PM EST Office Visit [facility] 10 [place] [address] Unknown, Unknown, Ana Liu, MAILHOUSE OPERATOR 10 [place] [address] [email or web address] documented as of this encounter Visit Diagnoses Not on filedocumented in this encounter Additional Health Concerns Assessment Noted Time PHQ-2 Depression Total Score: 0 08/21/19 25 11:09 AM EST documented as of this encounter Care Teams Bumper Straightener Relationship Specialty Start Date End Date Jose Cunningham MD [address] [place] [address], [address] [place] [address] [email or web address] PCP - General Internal Medicine 03/14/20 Dakota Uribe MD Urology 05/23/19 Filiberto Rivera MD [address] [place] [address], [address] [place] [address] [email or web address] Jitterbug Operator Cardiology 05/23/19 documented as of this encounter Additional Source Comments The information contained in this document represents components of the legal health record. It is not the complete legal health record.[facility]
--- OUTSIDE RECORDS SUMMARY | 2025-04-02 14:49 | XMS_ITS | Encounter Summary ---
Author Organization [facility] Address [address] [place] [address] Phone Care Team Providers Care Capital Campaign Fundraiser Name Role Phone Jose Cunningham MD Primary Care Provider Dakota Uribe MD Unavailable [phone] Filiberto Rivera MD Unavailable [phone] Filiberto Brooks MD Primary Care Provider Jose Cunnnigham MD Primary Care Provider [phone] Doris David RN Unavailable [email or web address] Encounter Details Date Type Department Care Team (Late st Contact Info) Description 10/09/2018 Prep for Surgery [facility] Medicine [address] [place] [address] Sushant Sommer DO [address] [place] [address] [facility] [place] [address] [email or web address] Tear of right rotator cuff, unspecified tear extent (Primary Dx); Chronic right shoulder pain Social History Tobacco Use Types Packs/Day Years Used Date Smoking Tobacco: Never Smokeless Tobacco: Never Alcohol Use Standard Drinks/Week Comments Yes 0 (1 standard drink = 0.6 oz pur e alcohol) Occasional Sex and Gender Information Value Date Recorded [...] Info) Description 06/04/2024 Procedure Pass [facility] [address] [place] [address] 02/01/2025 Procedure Pass [facility] Cardiovascular And Interventional Radiology 30 [place] [address] 04/08/2025 10:30 AM EDT Appointment [facility] [address] [place] [address] Filiberto Rivera MD [address] [place] [address] Rony Tierney MD [address] [place] [address] 04/12/2025 7:30 AM EDT Appointment [facility] Cardiovascular And Interventional Radiology [address] [place] [address] Rony Tierney MD [address] [place] [address] 05/06/2025 12:40 PM EST Office Visit [facility] [address] [place] [address] Dr 3rd Floor, [address] [address] Rony Tierney MD [address] [place] [address] 06/14/2025 12:45 PM EST Office Visit [facility] [address] [place] [id number] Unknown, Unknown, Ana Liu, FUR OPERATOR 10 [place] [address] [email or web address] documented as of this encounter Visit Diagnoses Diagnosis Tear of right rotator cuff, unspecified tear extent- Primary Chronic right shoulder pain Pain in joint, shoulder region documented in this encounter Additional Health Concerns Infection Onset Date Last Indicated Resolved Time CoV-Risk Comment:Per Ambulatory Triage Form 06/22/2022 06/22/202206/22 2:47 PM EST CoV-Presumed 06/22/2022 06/22/2022 2022 1:21 AM EST documented as of this encounter Care Teams Capital Campaign Fundraiser Relationship Specialty Start Date End Date Jose Cunningham MD [address] [place] [address], [address] [place] [address] [email or web address] PCP - General Internal Medicine 05/20/17 08/27/19 Filiberto Brooks MD [address] [place] [address], [address] [address] [email or web address] PCP - General Cardiology 08/28/1904/22 Jose Cunningham MD [address] [place] [address], [address] [place] [address] [email or web address] PCP - General Internal Medicine 03/14/20 Dakota Uribe MD [address] [place] [address], [address] [place] [address] Urology 05/23/19 Filiberto Rivera MD [address] [place] [address], [address] [place] [address] [email or web address] Instrument Tech Cardiology 05/23/19 Doris David, ALLEN [address] [place] [address], [facility] [address] [place] [address] [email or web address] Intern 11/22/22 documented as of this encounter Additional Source Comments The information contained in this document represents components of the legal health record. It is not the complete legal health record.[facility]
--- OUTSIDE RECORDS SUMMARY | 2025-04-02 14:49 | XMS_ITS | Encounter Summary ---
Author Organization [facility] Address [address] [place] [address] Phone Care Team Providers Care Fly Winder Name Role Phone Dakota Uribe MD Unavailable Filiberto Rivera MD Unavailable [phone] Jose Cunningham MD Primary Care Provider [phone] Encounter Details Date Type Department Care Team (Late st Contact Info) Description 09/11/2024 Procedure Pass [facility] 30 [place] [address] Social History Tobacco Use Types Packs/Day Years [...] Info) Description 06/04/2024 Procedure Pass [facility] [address] [place] [address] 02/01/2025 Procedure Pass [facility] Cardiovascular And Interventional Radiology [address] [place] [address] 04/08/2025 10:30 AM EDT Appointment [facility] [address] [place] [address] Filiberto Rivera MD [address] [place] [address] Rony Tierney MD [address] [place] [address] 04/12/2025 7:30 AM EDT Appointment [facility] Cardiovascular And Interventional Radiology [address] [place] [address] Rony Tierney MD [address] [place] [address] 05/06/2025 12:40 PM EST Office Visit [facility] [address] [place] [address] Dr 3rd Floor, [address] [address] Rony Tierney MD [address] [place] [address] 06/14/2025 12:45 PM EST Office Visit [facility] 10 [place] [address] Unknown, Unknown, Ana Liu, ARABIC LINGUIST 10 [place] [address] [email or web address] documented as of this encounter Visit Diagnoses Not on filedocumented in this encounter Additional Health Concerns Assessment Noted Time PHQ-2 Depression Total Score: 0 08/21/19 25 11:09 AM EST documented as of this encounter Care Teams Fly Winder Relationship Specialty Start Date End Date Jose Cunningham MD [address] [place] [address], [address] [place] [address] [email or web address] PCP - General Internal Medicine 03/14/20 Dakota Uribe MD Urology 05/23/19 Filiberto Rivera MD [address] [place] [address], [address] [place] [address] [email or web address] Director Workers Compensation Cardiology 05/23/19 documented as of this encounter Additional Source Comments The information contained in this document represents components of the legal health record. It is not the complete legal health record.[facility]
--- OUTSIDE RECORDS SUMMARY | 2025-04-02 14:49 | XMS_ITS | Encounter Summary ---
Author Organization [facility] Address [address] [place] [address] Phone Care Team Providers Care Rail Bonder Name Role Phone Jose Cunningham MD Primary Care Provider [phone] Dakota Uribe MD Unavailable [phone] Filiberto Rivera MD Unavailable [phone] Filiberto Brooks MD Primary Care Provider Jose Cunningham MD Primary Care Provider [phone] Doris David RN Unavailable [email or web address] Encounter Details Date Type Department Care Team (Late Contact Info) Description 06/11/2019 Procedure Pass [facility] [address] [place] [phone] Social History Tobacco Use Types Packs/Day Years [...] Upcoming Encounters Date Type Department Care Team ([facility] Contact Info) Description 06/04/2024 Procedure Pass [facility] [address] [place] [address] 02/01/2025 Procedure Pass [facility] Cardiovascular And Interventional Radiology 30 [place] [address] 04/08/2025 10:30 AM EDT Appointment [facility] [address] [place] [address] Filiberto Rivera MD [address] [place] [address] Rony Tierney MD [address] [place] [address] 04/12/2025 7:30 AM EDT Appointment [facility] Cardiovascular And Interventional Radiology [address] [place] [address] Rony Tierney MD [address] [place] [address] 05/06/2025 12:40 PM EST Office Visit [facility] [address] [place] [address] Dr 3rd Floor, [address] [address] Rony Tierney MD [address] [place] [address] 06/14/2025 12:45 PM EST Office Visit [facility] [address] [place] [address] Unknown, Unknown, Ana Liu, GARMENT TAG STRINGER 10 [place], [place] [id number] documented as of this encounter Visit Diagnoses Not on filedocumented in this encounter Additional Health Concerns Infection Onset Date Last Indicated Resolved Time CoV-Risk Comment:Per Ambulatory Triage Form 06/22/2022 06/22/202206/22 2:47 PM EST CoV-Presumed 06/22/2022 06/22/2022 2022 1:21 AM EST Assessment Noted Time PHQ-2 Depression Total Score: 0 01/03/20 8:28 AM EDT documented as of this encounter Care Teams Rail Bonder Relationship Specialty Start Date End Date Jose Cunningham MD [address] [place] [address], [address] [address] [email or web address] PCP - General Internal Medicine 05/20/17 08/27/19 Filiberto Brooks MD [address] [place] [address] [email or web address] PCP - General Cardiology 08/28/1904/22 Jose Cunningham MD [address] [place] [address], [address] [address] PCP - General Internal Medicine 03/14/20 Dakota Uribe MD [address] [place] [address], [address] [address] Urology 05/23/19 Filiberto Rivera MD [address] [place] [address] [email or web address] Safety Pin Assembling Machine Operator Cardiology 05/23/19 Doris David RN [address] [place] [address] [email or web address] iCMP Cutting Room Supervisor 11/22/22 documented as of this encounter Additional Source Comments The information contained in this document represents components of the legal health record. It is not the complete legal health record.[facility]
--- OUTSIDE RECORDS SUMMARY | 2025-04-02 14:49 | XMS_ITS | Encounter Summary ---
Author Organization [facility] Address [address] [place] [address] Phone Care Team Providers Care Fur Cutting Machine Operator Name Role Phone Jose Cunningham MD Primary Care Provider [phone] Dakota Uribe MD Unavailable [phone] Filiberto Rivera MD Unavailable [phone] Filiberto Brooks MD Primary Care Provider Jose Cunningham MD Primary Care Provider [phone] Doris David RN Unavailable [email or web address] Encounter Details Date Type Department Care Team (Late st Contact Info) Description 10/04/2018 Procedure Pass [facility], [address] [address] Social History Tobacco Use Types Packs/Day Years [...] on file documented as of this encounter Last Filed Vital Signs Vital Sign Reading Time Taken Comments Blood Pressure - - Pulse - - Temperature - - Respiratory Rate - - Oxygen Saturation - - Inhaled Oxygen Concentration - - Weight 77.1 kg (170 lb) 10/04/2018 6:40 PM EDT Height 180.3 cm (5' 11 ) 10/04/2018 6:40 PM EDT Body Mass Index 23.71 10/04/2018 6:40 PM EDT documented in this encounter Plan of Treatment Upcoming Encounters Date Type Department Care Team (Late st Contact Info) Description 06/04/2024 Procedure Pass [facility] [address] [place] [address] 02/01/2025 Procedure Pass [facility] Cardiovascular And Interventional Radiology 30 [place] [address] 04/08/2025 10:30 AM EDT Appointment [facility] [address] [place] [address] Filiberto Rivera MD [address] [place] [address] Rony Tierney MD [address] [place] [address] 04/12/2025 7:30 AM EDT Appointment [facility] Cardiovascular And Interventional Radiology [address] [place] [address] Rony Tierney MD [address] [place] [address] 05/06/2025 12:40 PM EST Office Visit [facility] [address] [place] [address] 3rd Floor, [address] [address] Rony Tierney MD [address] [place] [address] 06/14/2025 12:45 PM EST Office Visit [facility] 10 [place] [address] Unknown, Unknown, Ana Liu, ETL CONSULTANT 10 [place] [address] [email or web address] documented as of this encounter Visit Diagnoses Not on filedocumented in this encounter Additional Health Concerns Infection Onset Date Last Indicated Resolved Time CoV-Risk Comment:Per Ambulatory Triage Form 06/22/2022 06/22/202206/22 2:47 PM EST CoV-Presumed 06/22/2022 06/22/2022 2022 1:21 AM EST documented as of this encounter Care Teams Fur Cutting Machine Operator Relationship Specialty Start Date End Date Jose Cunningham MD [address] [place] [address], [address] [place] [address] [email or web address] PCP - General Internal Medicine 05/20/17 08/27/19 Filiberto Brooks MD [address] [place] [address], [address] [address] [email or web address] PCP - General Cardiology 08/28/1904/22 Jose Cunningham MD [address] [place] [address], [address] [place] [address] [email or web address] PCP - General Internal Medicine 03/14/20 Dakota Uribe MD [address] [place] [address], [address] [place] [address] Urology 05/23/19 Filiberto Rivera MD [address] [place] [address], [address] [address] [email or web address] Bureau Director Cardiology 05/23/19 Doris David, ALLEN 22 [facility] [address] [place] [address] [email or web address] 11/22/22 documented as of this encounter Additional Source Comments The information contained in this document represents components of the legal health record. It is not the complete legal health record.[facility]
--- OUTSIDE RECORDS SUMMARY | 2025-04-02 14:50 | XMS_ITS | Encounter Summary ---
Author Organization [facility] Address [address] [place] [address] Phone Care Team Providers Care Station Helper Name Role Phone Jose Cunningham MD Primary Care Provider [phone] Dakota Uribe MD Unavailable Filiberto Rivera MD Unavailable [phone] Filiberto Brooks MD Primary Care Provider Jose Cunningham MD Primary Care Provider [phone] Doris David RN Unavailable [email or web address] Encounter Details Date Type Department Care Team (Late Contact Info) Description 05/10/2019 Procedure Pass [facility] Cardiovascular And Interventional Radiology 30 [place] [address] Social History Tobacco Use Types Packs/Day Years [...] Upcoming Encounters Date Type Department Care Team ([facility] Contact Info) Description 06/04/2024 Procedure Pass [facility] [address] [place] [address] 02/01/2025 Procedure Pass [facility] Cardiovascular And Interventional Radiology 30 [place] [address] 04/08/2025 10:30 AM EDT Appointment [facility] [address] [place] [address] Filiberto Rivera MD [address] [place] [address] Rony Tierney MD [address] [place] [address] 04/12/2025 7:30 AM EDT Appointment [facility] Cardiovascular And Interventional Radiology [address] [place] [address] Rony Tierney MD [address] [place] [address] 05/06/2025 12:40 PM EST Office Visit [facility] [address] [place] [address] Dr 3rd Floor, [address] [address] Rony Tierney MD [address] [place] [address] 06/14/2025 12:45 PM EST Office Visit [facility] [address] [place] [address] Unknown, Unknown, Ana Liu, GRANTS DIRECTOR 10 [place], [place] [id number] documented as of this encounter Visit Diagnoses Not on filedocumented in this encounter Additional Health Concerns Infection Onset Date Last Indicated Resolved Time CoV-Risk Comment:Per Ambulatory Triage Form 06/22/2022 06/22/202206/22 2:47 PM EST CoV-Presumed 06/22/2022 06/22/2022 2022 1:21 AM EST Assessment Noted Time PHQ-2 Depression Total Score: 0 01/03/20 8:28 AM EDT documented as of this encounter Care Teams Station Helper Relationship Specialty Start Date End Date Jose Cunningham MD [address] [place] [address], [address] [address] [email or web address] PCP - General Internal Medicine 05/20/17 08/27/19 Filiberto Brooks MD [address] [place] [address] [email or web address] PCP - General Cardiology 08/28/1904/22 Jose Cunningham MD [address] [place] [address], [address] [address] PCP - General Internal Medicine 03/14/20 Dakota Uribe MD [address] [place] [address], [address] [address] Urology 05/23/19 Filiberto Rivera MD [address] [place] [address] [email or web address] Care Process Manager Cardiology 05/23/19 Doris David RN [address] [place] [address] [email or web address] iCMP Coil Machine Supervisor 11/22/22 documented as of this encounter Additional Source Comments The information contained in this document represents components of the legal health record. It is not the complete legal health record.[facility]
--- OUTSIDE RECORDS SUMMARY | 2025-04-02 14:50 | XMS_ITS | Encounter Summary ---
Author Organization [facility] Address [address] [place] [address] Phone Care Team Providers Care Spinner Operator Name Role Phone Dakota Uribe MD Unavailable [phone] Filiberto Rivera MD Unavailable [phone] Jose Cunningham MD Primary Care Provider [phone] Doris David RN Unavailable [email or web address] Encounter Details Date Type Department Care Team (Late Contact Info) Description 05/26/2021 Procedure Pass OR Admitting Dept - Virtual Department [address] [place] [address] Social History Tobacco Use Types Packs/Day Years [...] Info) Description 06/04/2024 Procedure Pass [facility] [place] [address] [place] [address] 02/01/2025 Procedure Pass [facility] [address] [place] [address] 04/08/2025 10:30 AM EDT Appointment Echo Lab [address] [place] [address] Filiberto Rivera MD [address] [place] [address], [address] [address] Rony Tierney MD [address] [place] [address] 04/12/2025 7:30 AM EDT Appointment [facility] [address] [place] [address] Rony Tierney MD [address] [place] [address] 05/06/2025 12:40 PM EST Office Visit [facility] [address] [place] [address] 3rd Floor, [address] [address] Rony Tierney MD [address] [place] [address] 06/14/2025 12:45 PM EST Office Visit [facility] [address] [place] [address] Unknown, Unknown, Ana Liu, SPANISH INTERPRETER/TRANSLATOR 10 [place] [address] documented as of this encounter Visit Diagnoses Not on filedocumented in this encounter Additional Health Concerns Infection Onset Date Last Indicated Resolved Time CoV-Risk Comment:Per Ambulatory Triage Form 06/22/2022 06/22/202206/22 2:47 PM EST CoV-Presumed 06/22/2022 06/22/2022 2022 1:21 AM EST Assessment Noted Time PHQ-2 Depression Total Score: 0 01/17/20 20 4:29 PM EDT documented as of this encounter Care Teams Spinner Operator Relationship Specialty Start Date End Date Jose Cunningham MD [address] [place] [address], [address] [place] [address] [email or web address] PCP - General Internal Medicine 03/14/20 Dakota Uribe MD Urology 05/23/19 Filiberto Rivera MD [address] [place] [address], [address] [place] [address] [email or web address] Delivery Sales Worker Cardiology 05/23/19 Doris David RN [address] [place] [address], [address] [place] [address] [email or web address] Lay Out And Detail Drafter 11/22/22 documented as of this encounter Additional Source Comments The information contained in this document represents components of the legal health record. It is not the complete legal health record.[facility]
--- OUTSIDE RECORDS SUMMARY | 2025-04-02 14:50 | XMS_ITS | Encounter Summary ---
Author Organization [facility] Address [address] [place] [address] Phone Care Team Providers Care Hydraulic Press Operator Name Role Phone Dakota Uribe MD Unavailable [phone] Filiberto Rivera MD Unavailable [phone] Jose Cunningham MD Primary Care Provider [phone] Doris David RN Unavailable [email or web address] Encounter Details Date Type Department Care Team (Late st Contact Info) Description 03/17/2020 Procedure Pass [facility], [address] [address] Social History Tobacco Use Types Packs/Day Years [...] - - Weight 77.1 kg (170 lb) 03/19/2020 4:12 PM EDT Height 180.3 cm (5' 11 ) 03/19/2020 4:12 PM EDT Body Mass Index 23.71 03/19/2020 4:12 PM EDT documented in this encounter Plan of Treatment Upcoming Encounters Date Type Department Care Team (Late st Contact Info) Description 06/04/2024 Procedure Pass Echo Lab [address] [place] [address] 02/01/2025 Procedure Pass [facility] Cardiovascular And Interventional Radiology 30 [place] [address] 04/08/2025 10:30 AM EDT Appointment Echo Lab [address] [place] [address] Filiberto Rivera MD [address] [place] [address] Rony Tierney MD [address] [place] [address] 04/12/2025 7:30 AM EDT Appointment [facility] Cardiovascular And Interventional Radiology 30 [place] [address] Rony Tierney MD [address] [place] [address] 05/06/2025 12:40 PM EST Office Visit [facility] [address] [place] [address] Dr 3rd Floor, [address] [address] Rony Tierney MD [address] [place] [address] 06/14/2025 12:45 PM EST Office Visit [facility] [address] [place] [address] Unknown, Unknown, Ana Liu, SMALL WIND ENERGY INSTALLER 10 [place], [place] [id number] [email or web address] documented as of this encounter Visit Diagnoses Not on filedocumented in this encounter Additional Health Concerns Infection Onset Date Last Indicated Resolved Time CoV-Risk Comment:Per Ambulatory Triage Form 06/22/2022 06/22/202206/22 2:47 PM EST CoV-Presumed 06/22/2022 06/22/2022 2022 1:21 AM EST Assessment Noted Time PHQ-2 Depression Total Score: 0 01/17/20 4:29 PM EDT documented as of this encounter Care Teams Hydraulic Press Operator Relationship Specialty Start Date End Date Jose Cunningham MD [address] [place] [address], [address] [place] [address] [email or web address] PCP - General Internal Medicine 03/14/20 Dakota Uribe MD Urology 05/23/19 Filiberto Rivera MD [address] [place] [address], [address] [place] [address] [email or web address] Strategic Planning Consultant Cardiology 05/23/19 Doris David, ALLEN [address] [place] [address], [address] [place] [address] [email or web address] iCMP Recreation Therapy Aides Teacher 11/22/22 documented as of this encounter Additional Source Comments The information contained in this document represents components of the legal health record. It is not the complete legal health record.[facility]
--- OUTSIDE RECORDS SUMMARY | 2025-04-02 14:50 | XMS_ITS | Encounter Summary ---
Author Organization [facility] Address [address] [facility] [address] [place] [address] Phone Care Team Providers Care Checkout Supervisor Name Role Phone Dakota Uribe MD Unavailable Filiberto Rivera MD Unavailable Jose Cunningham MD Primary Care Provider [phone] Doris David RN Unavailable [email or web address] Encounter Details Date Type Department Care Team (Late st Contact Info) Description 03/19/2020 Transcribe Orders [facility] Laboratory [address] [place] [address] Dakota Uribe MD [address] [place] [address] [address] [place] [address] 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) Social History Tobacco Use Types Packs/Day Years [...] Info) Description 06/04/2024 Procedure Pass [facility] [address] [place] [address] 02/01/2025 Procedure Pass [facility] Cardiovascular And Interventional Radiology [address] [place] [address] 04/08/2025 10:30 AM EDT Appointment Echo Lab [address] [place] [address] Filiberto Rivera MD [address] [place] [address] Rony Tierney MD [address] [place] [place] [address] 04/12/2025 7:30 AM EDT Appointment [facility] Cardiovascular And Interventional Radiology [address] [place] [address] Rony Tierney MD [address] [place] [address] 05/06/2025 12:40 PM EST Office Visit [facility] [address] [place] [address] Dr 3rd Floor, [address] [address] Rony Tierney MD [address] [place] [address] 06/14/2025 12:45 PM EST Office Visit [facility] [address] [place] [phone] Unknown, Unknown, Ana Liu, RV SERVICE TECHNICIAN 10 [place], [place] [phone] documented as of this encounter Results * PSA, free and total (03/19/2020 9:19 AM EDT) PSA, TOTAL 1.9 <=6.5 ng/mL [facility]/[address] FREE PSA 0.6 ng/mL [facility]/[address]RI[address] FREE/TOT PSA RATIO SEE NOTE ratio [facility] YONY/[address] DR Comment: (NOTE) Ratio not calculated because clinical usefulness is not defined except in range of total PSA 4.0-10.0 ng/mL. ADDITIONAL INFORMATION The testing method is an electrochemiluminescence assay manufactured by [employer] and performed on the Modular or Ronald system. Values obtained with different assay methods or kits may be different and cannot be used interchangeably. Test results cannot be interpreted as absolute evidence for the presence or absence of malignant disease. Blood 03/19/2020 9:19 AM EDT 03/19/2020 9:21 AM EDT us Dakota Uribe MD LAB BLOOD ORDERABLES Final Result [facility] WAYNE BHAKTA/[address] [place] [address] documented in this encounter Visit Diagnoses Diagnosis Benign localized hyperplasia of prostate with urinary retention- Primary Benign localized hyperplasia of prostate with urinary obstruction and other lower urinary tract symptoms (LUTS) documented in this encounter Additional Health Concerns Infection Onset Date Last Indicated Resolved Time CoV-Risk Comment:Per Ambulatory Triage Form 06/22/2022 06/22/202206/22 2:47 PM EST CoV-Presumed 06/22/2022 06/22/2022 2022 1:21 AM EST Assessment Noted Time PHQ-2 Depression Total Score: 0 01/17/20 4:29 PM EDT documented as of this encounter Care Teams Checkout Supervisor Relationship Specialty Start Date End Date Jose Cunningham MD [address] [place] [address], [address] [place] [address] PCP - General Internal Medicine 03/14/20 Dakota Uribe MD Urology 05/23/19 Filiberto Rivera MD [address] [place] [address], [address] [place] [address] [email or web address] Swatch Checker Cardiology 05/23/19 Doris David RN [address] [place] [address], [address] [place] [address] [email or web address] Abap Developer 11/22/22 documented as of this encounter Additional Source Comments The information contained in this document represents components of the legal health record. It is not the complete legal health record.[facility]
--- OUTSIDE RECORDS SUMMARY | 2025-04-02 14:50 | XMS_ITS | Encounter Summary ---
Author Organization [facility] Address [address] [place] [address] Phone Care Team Providers Care Escort Service Attendant Name Role Phone Dakota Uribe MD Unavailable Filiberto Rivera MD Unavailable [phone] Jose Cunningham MD Primary Care Provider [phone] Doris David RN Unavailable [email or web address] Encounter Details Date Type Department Care Team (Late st Contact Info) Description 05/05/2022 Procedure Pass Echo [facility] [place] [address] [place] [address] Social History Tobacco Use Types Packs/Day Years [...] 06/04/2024 Procedure Pass [facility] [place] [address] [place] [address] 02/01/2025 Procedure Pass [facility] Cardiovascular And Interventional Radiology 30 [place] [address] 04/08/2025 10:30 AM EDT Appointment [facility] [address] [place] [address] Filiberto Rivera MD [address] [place] [address], [address] [address] Rony Tierney MD [address] [place] [address] 04/12/2025 7:30 AM EDT Appointment [facility] [address] [place] [address] Rony Tierney MD [address] [place] [address] 05/06/2025 12:40 PM EST Office Visit [facility] [address] [place] [address] Dr 3rd Floor, [address] [address] Rony Tierney MD [address] [place] [address] 06/14/2025 12:45 PM EST Office Visit [facility] [address] [place] [address] Unknown, Unknown, Ana Liu, PARAGLIDING INSTRUCTOR 10 [place] [address] documented as of this encounter Visit Diagnoses Not on filedocumented in this encounter Additional Health Concerns Infection Onset Date Last Indicated Resolved Time CoV-Risk Comment:Per Ambulatory Triage Form 06/22/2022 06/22/202206/22 2:47 PM EST CoV-Presumed 06/22/2022 06/22/2022 2022 1:21 AM EST Assessment Noted Time PHQ-2 Depression Total Score: 0 01/17/20 20 4:29 PM EDT documented as of this encounter Care Teams Escort Service Attendant Relationship Specialty Start Date End Date Jose Cunningham MD [address] [place] [address], [address] [place] [address] [email or web address] PCP - General Internal Medicine 03/14/20 Dakota Uribe MD Urology 05/23/19 Filiberto Rivera MD [address] [place] [address], [address] [place] [address] [email or web address] Gis Software Engineer Cardiology 05/23/19 Doris David RN [address] [place] [address], [address] [place] [address] [email or web address] 11/22/22 documented as of this encounter Additional Source Comments The information contained in this document represents components of the legal health record. It is not the complete legal health record.[facility]
--- OUTSIDE RECORDS SUMMARY | 2025-04-02 14:50 | XMS_ITS | Encounter Summary ---
Author Organization [facility] Address [address] [place] [address] Phone Care Team Providers Care Data Center Solutions Architect Name Role Phone Jose Cunningham MD Primary Care Provider [phone] Dakota Uribe MD Unavailable [phone] Filiberto Rivera MD Unavailable [phone] Filiberto Brooks MD Primary Care Provider Jose Cunningham MD Primary Care Provider [phone] Doris David RN Unavailable [email or web address] Encounter Details Date Type Department Care Team (Late Contact Info) Description 11/16/2018 Procedure Pass OR Admitting Dept - [facility] Department [address] [place] [address] Social History Tobacco Use Types Packs/Day Years [...] Info) Description 06/04/2024 Procedure Pass Echo [facility] [place] [address] [place] [address] 02/01/2025 Procedure Pass [facility] Cardiovascular And Interventional Radiology [address] [place] [address] 04/08/2025 10:30 AM EDT Appointment Echo Lab [address] [place] [address] Filiberto Rivera MD [address] [place] [address] Rony Tierney MD [address] [place] [address] 04/12/2025 7:30 AM EDT Appointment [facility] Cardiovascular And Interventional Radiology [address] [place] [address] Rony Tierney MD [address] [place] [address] 05/06/2025 12:40 PM EST Office Visit [facility] [address] [place] [address] 3rd Floor, [address] [address] Rony Tierney MD [address] [place] [address] 06/14/2025 12:45 PM EST Office Visit [facility] [address] [place] [address] Unknown, Unknown, Ana Liu, PEDIATRIC DENTIST 10 [place], [place] [phone] documented as of this encounter Visit Diagnoses Not on filedocumented in this encounter Additional Health Concerns Infection Onset Date Last Indicated Resolved Time CoV-Risk Comment:Per Ambulatory Triage Form 06/22/2022 06/22/202206/22 /2022 2:47 PM EST CoV-Presumed 06/22/2022 06/22/2022 2022 1:21 AM EST documented as of this encounter Care Teams Data Center Solutions Architect Relationship Specialty Start Date End Date Jose Cunningham MD [address] [place] [address], [address] [place] [address] PCP - General Internal Medicine 05/20/17 08/27/19 Filiberto Brooks MD [address] [place] [address], [address] [address] [email or web address] PCP - General Cardiology 08/28/1904/22 Jose Cunningham MD [address] [place] [address], [address] [place] [address] PCP - General Internal Medicine 03/14/20 Dakota Uribe MD [address] [place] [address], [address] [address] Urology 05/23/19 Filiberto Rivera MD [address] [place] [address] [email or web address] Blower Feeder Dyed Raw Stock Cardiology 05/23/19 Doris David, ALELN [address] [address] [email or web address] iCMP Engineering Instructor 11/22/22 documented as of this encounter Additional Source Comments The information contained in this document represents components of the legal health record. It is not the complete legal health record.[facility]
--- OUTSIDE RECORDS SUMMARY | 2025-04-02 14:50 | XMS_ITS | Encounter Summary ---
Author Organization [facility] Address [address] [place] [address] Phone Care Team Providers Care Cement Gun Operator Name Role Phone Jose Cunningham MD Primary Care Provider Dakota Uribe MD Unavailable [phone] Filiberto Rivera MD Unavailable [phone] Filiberto Brooks MD Primary Care Provider Jose Cunningham MD Primary Care Provider [phone] Doris David RN Unavailable [email or web address] Encounter Details Date Type Department Care Team (Late st Contact Info) Description 06/13/2017 Procedure Pass [facility], Ct Scan - [address] [address] Social History Tobacco Use Types Packs/Day Years [...] 06/04/2024 Procedure Pass [facility] [place] [address] [place] [address] 02/01/2025 Procedure Pass [facility] Cardiovascular And Interventional Radiology [address] [place] [address] 04/08/2025 10:30 AM EDT Appointment Echo Lab [address] [place] [address] Filiberto Rivera MD [address] [place] [address] Rony Tierney MD [address] [place] [address] 04/12/2025 7:30 AM EDT Appointment [facility] Cardiovascular And Interventional Radiology [address] [place] [address] Rony Tierney MD [address] [place] [address] [email or web address] 05/06/2025 12:40 PM EST Office Visit [facility] [address] [place] [address] Dr 3rd Floor, [address] [address] Rony Tierney MD [address] [place] [address] 06/14/2025 12:45 PM EST Office Visit [facility] [address] [place] [address] [phone] Unknown, Unknown, Ana Liu, HEAD TENNIS PROFESSIONAL 10 [place], [place] [phone] documented as of this encounter Visit Diagnoses Not on filedocumented in this encounter Additional Health Concerns Infection Onset Date Last Indicated Resolved Time CoV-Risk Comment:Per Ambulatory Triage Form 06/22/2022 06/22/202206/22 2:47 PM EST CoV-Presumed 06/22/2022 06/22/2022 2022 1:21 AM EST documented as of this encounter Care Teams Cement Gun Operator Relationship Specialty Start Date End Date Jose Cunningham MD [address] [place] [address], [address] [place] [address] PCP - General Internal Medicine 05/20/17 08/27/19 Filiberto Brooks MD [address] [place] [address] [email or web address] PCP - General Cardiology 08/28/1904/22 Jose Cunningham MD [address] [place] [address], [address] [place] [address] PCP - General Internal Medicine 03/14/20 Dakota Uribe MD [address] [place] [address], [address] [address] Urology 05/23/19 Filiberto Rivera MD [address] [place] [address] [email or web address] Outbound Sales Representative Cardiology 05/23/19 Doris David RN [address] [place] [address] [email or web address] iCMP Litigation Attorney 11/22/22 documented as of this encounter Additional Source Comments The information contained in this document represents components of the legal health record. It is not the complete legal health record.[facility]
--- OUTSIDE RECORDS SUMMARY | 2025-04-02 14:50 | XMS_ITS | Encounter Summary ---
Author Organization [facility] Address [address] [place] [address] [address] [place] [address] Phone Care Team Providers Care Cutter In Name Role Phone Dakota Uribe MD Unavailable Filiberto Rivera MD Unavailable [phone] Jose Cunningham MD Primary Care Provider Encounter Details Date Type Department Care Team (Latest Contact Info) Description 11/01/2024 Ancillary Orders [facility] Medicine [address] [place] [id number] Jose Cunningham MD [address] [facility], [address] [place] [address] [email or web address] Amaurosis fugax of right eye (Primary Dx); Amaurosis fugax Social History Tobacco Use Types Packs/Day Years [...] Info) Description 06/04/2024 Procedure Pass [facility] [address] [place] [address] 02/01/2025 Procedure Pass [facility] Cardiovascular And Interventional Radiology [address] [place] [address] 04/08/2025 10:30 AM EDT Appointment Echo Lab [address] [place] [address] Filiberto Rivera MD [address] [place] [address] Rony Tierney MD [address] [place] [address] 04/12/2025 7:30 AM EDT Appointment [facility] Cardiovascular And Interventional Radiology [address] [place] [address] Rony Tierney MD [address] [place] [address] 05/06/2025 12:40 PM EST Office Visit [facility] [address] [facility] [address]rd Floor, [address] [place] [address] Rony Tierney MD [address] [facility], [address] [place] [address] 06/14/2025 12:45 PM EST Office Visit [facility] [address] [place] [phone] Unknown, Unknown, Ana Liu, GREASE RENDERER [address] [place] [address] [email or web address] documented as of this encounter Results * MCT (Mobile Cardiac Telemetry) (10/19/2024 2:03 PM EDT) Anatomical Region Laterality Modality Heart Other Narrative 10/22/2024 2:23 PM EDT This 30-day event monitor was ordered for of TIA. The predominant rhythm was sinus rhythm. Minimum heart rate 45 bpm Average heart rate 68 bpm Maximum heart rate 154 bpm There were occasional PACs and PVCs (both approximately 1% burden). There were 7 runs of NSVT, the longest of which lasted 14 beats. There were very frequent atrial runs, the longest of which lasted 36 beats. The atrial arrhythmias are concerning for brief paroxysms of atrial tachycardia. There is no irregularly irregular rhythm that would be concerning for atrial fibrillation. There are no clinically significant pauses documented. Conclusion: Although the patient has frequent runs of atrial arrhythmia, there is no definitive evidence of atrial fibrillation. The patient has already been started on Xarelto for other reasons, so they are protected from cardioembolic events. Consider repeat monitoring if anticoagulation is to be discontinued in the future. 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- Primary Transient arterial occlusion of retina Amaurosis fugax Transient arterial occlusion of retina documented in this encounter Additional Health Concerns Assessment Noted Time PHQ-2 Depression Total Score: 0 08/21/19 25 11:09 AM EST documented as of this encounter Care Teams Cutter In Relationship Specialty Start Date End Date Jose Cunningham MD [address] [place] [address], [address] [place] [address] [email or web address] PCP - General Internal Medicine 03/14/20 Dakota Uribe MD Urology 05/23/19 Filiberto Rivera MD [address] [place] [address], [address] [place] [address] [email or web address] [facility] Cardiology 05/23/19 documented as of this encounter Additional Source Comments The information contained in this document represents components of the legal health record. It is not the complete legal health record.[facility]
--- OUTSIDE RECORDS SUMMARY | 2025-04-02 14:50 | XMS_ITS | Encounter Summary ---
Author Organization [facility] Address [address] [place] [address] [place] [phone] Phone Care Team Providers Care Interior Assemblies Installer Name Role Phone Dakota Uribe MD Unavailable Filiberto Rivera MD Unavailable [phone] Jose Cunningham MD Primary Care Provider [phone] Encounter Details Date Type Department Care Team (Late st Contact Info) Description 06/06/2023 Procedure Pass [facility] [address] [place] [address] Social History Tobacco Use Types Packs/Day Years [...] with a working camera? Not on file Sex and Gender Information Value Date Recorded [...] Info) Description 06/04/2024 Procedure Pass [facility] [address] [place] [address] 02/01/2025 Procedure Pass [facility] Cardiovascular And Interventional Radiology [address] [place] [address] 04/08/2025 10:30 AM EDT Appointment Echo Lab [address] [place] [address] Filiberto Rivera MD [address] [place] [address] Rony Tierney MD [address] [place] [address] 04/12/2025 7:30 AM EDT Appointment [facility] Cardiovascular And Interventional Radiology [address] [place] [address] Rony Tierney MD [address] [place] [address] 05/06/2025 12:40 PM EST Office Visit [facility] [address] [place] [address] [address]rd Floor, [address] [address] Rony Tierney MD [address] [place] [address] 06/14/2025 12:45 PM EST Office Visit [facility] [address] [place] [address] [phone] Unknown, Unknown, Ana Liu, STORE LOSS PREVENTION MANAGER [address] [place], [place] [id number] documented as of this encounter Visit Diagnoses Not on filedocumented in this encounter Additional Health Concerns Assessment Noted Time PHQ-2 Depression Total Score: 0 08/19/19 24 9:56 AM EST documented as of this encounter Care Teams Interior Assemblies Installer Relationship Specialty Start Date End Date Jose Cunningham MD [address] [place] [address], [address] [place] [address] PCP - General Internal Medicine 03/14/20 Dakota Uribe MD Urology 05/23/19 Filiberto Rivera MD [address] [place] [address], [address] [place] [address] [employer] Super[employer] Cardiology 05/23/19 documented as of this encounter Additional Source Comments The information contained in this document represents components of the legal health record. It is not the complete legal health record.[facility]
--- OUTSIDE RECORDS SUMMARY | 2025-04-02 14:50 | XMS_ITS | Clinical Summary ---
Author Organization [facility] Address [address] [place] [address] Phone Care Team Providers Care Interline Clerk Name Role Phone Dakota Uribe MD Unavailable Filiberto Rivera MD Unavailable [phone] Jose Cunningham MD Primary Care Provider Allergies Active Allergy Reactions Criticality Noted Date Comments Finasteride 11/08/2024 Developed lump on breast. Medications terazosin (HYTRIN) 5 MG capsule Take 5 mg by mouth nightly at bedtime. Active amoxicillin (AMOXIL) 500 MG tablet Take 2,000 mg by mouth as needed (Prior to dental procedures). Prior to dental procedures 2 Active atorvastatin (LIPITOR) 80 MG tabletIndicatio ns:Amaurosis fugax of right eye Take 1 tablet (80 mg total) by mouth daily. 90 tablet 1 5 Active rivaroxaban (XARELTO) 20 mg Tab Take 1 tablet (20 mg total) by mouth daily with dinner. 90 tablet 3 5 Active Active Problems Problem Noted Date Diagnosed Date Pruritic condition 11/08/2024 Overview (11/08/2024): No rash Try HC cream Leg pruritus is dt his varicose veins, he does not want intervention Assessment & Plan (02/21/2025 9:35 AM EDT): Intermittent pruritus, unlikely medication reaction but will check CMP to assess liver and bilirubin levels. Differential includes dermatological conditions, medication reactions, and environmental factors. No jaundice or abdominal pain noted. - Order metabolic panel including liver function tests. - Continue antihistamines and hydrocortisone. - Apply plain moisturizer to dry areas. - Follow up with dermatology. - Contact clinic if symptoms worsen significantly. Orders: Comprehensive metabolic panel; Future Varicose veins of bilateral lower extremities with other complications 11/08/2024 Overview (11/08/2024): Declines intervention, wears comp stockings Can be itchy Amaurosis fugax of right eye 08/21/2024 Overview (10/12/2024): Seen Jul 2024, now on ASA/lipitor high dose. 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 Started on Xarelto by cardiology, follow-up SHAWANDA in 6 months. Assessment & Plan (08/21/2024 11:38 AM EST): Orders: Ambulatory referral to [facility] - Employed Practices US Carotid Duplex Complete (Bilateral); Future Lipid panel; Future Neuropathy involving both lower extremities 12/2024 Overview (07/09/2024): Mild, soles only Right leg pain 11/23/2023 Assessment & Plan (11/23/2023 1:47 PM EDT): This started with focal pain and swelling of the right knee but now seems more localized to the right hamstring. He had pain higher up yesterday but this is not reproducible today. Recommend ice, topical arnica or Biofreeze, activity modification. He benefited greatly from PT for other issues in the past and referral is placed. Call with worsening symptoms, failure to improve. Right hamstring injury 01/07/2023 Overview (01/07/2023): Initial injury after an exercise class where they were doing leg extensions, followed by a severe cramping episode in the evening. Advised to limit aggressive hamstring exercises, use low heat and Tylenol for the next 2 weeks Transient ischemic attack (TIA) 03/17/2020 Overview (11/08/2024): 2 events with dimming of R eye vision in February 2020. Echo, carotid u/s and MRI/MRA normal. Also saw Dr Baum. 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 F/u SHAWANDA in 6 months. Vision loss of right eye 03/17/2020 Diplopia 03/17/2020 S/P aortic valve replacement 07/09/2019 Aneurysm of aortic root 06/11/2019 Aortic aneurysm, thoracic 05/10/2019 Lower back pain 01/02/2019 Overview (05/12/2021): Get a new mattress, may need PT We discussed nl lordosis May 2021: Recurrent, worsening slowly. Work on flexibility, core strengthening. Still has his old mattress. Repeat xrays. Right shoulder injury 09/22/2018 Right shoulder pain 09/22/2018 Varicose veins of both lower extremities 018 Overview (08/19/2023): Followed by Dr Rivera, rec'd compression stockings Has itching now, further w/u started Assessment & Plan (07/09/2024 2:34 PM EST): I rec he get varicose veins treated, still very itchy. Right inguinal hernia 09/08/2017 Overview (08/19/2023): Noted Aug 2023 Discussed elective repair, he agrees to eval Assessment & Plan (09/08/2017 1:34 PM EST): We discussed the anatomy of the abdominal wall and pathophysiology of hernia. The patient understands hernias are safe to live with, with a very low likelihood of strangulation requiring emergent surgical intervention. We reviewed steps of repair with mesh placement, and expected postoperative course with need for activity restriction with wearing of scrotal support. We discussed the risks of inguinal hernia surgery: -Reaction to anesthesia -Infection and bleeding at the incision site requiring mesh removal -Nerve damage, numbness of skin, loss of blood supply to scrotum or testicles resulting in testicular atrophy; chronic pain -Damage to the cord structures, specifically the vas deferens, resulting in infertility -Damage to the femoral artery or vein -Recurrence. As he is asymptomatic at this point, Roque like to hold off on repair. He will call us with any changes. Review signs and symptoms of strangulation that would warrant ER visit. Closed dislocation of right patella 06/08/2017 Assessment & Plan (11/23/2023 1:47 PM EDT): No symptoms suggestive of recurrent dislocation. Consider return to [facility] if right leg symptoms persist. Dislocation of right patella 06/08/2017 Osteoarthritis of knee 06/08/2017 Assessment & Plan (08/19/2023 10:27 AM EST): More frequent sx, NSAIDs help Aortic root dilatation 06/08/2017 Assessment & Plan (12/19/2017 4:07 PM EDT): He has an aortic root dilation. We will recheck this in April. Assessment & Plan (06/13/2017 9:59 AM EST): CT scan for confirmation. Asthma 06/08/2017 Assessment & Plan (06/14/2017 4:08 PM EST): Rare sx, stable Spondylosis of lumbar region without myelopathy or radiculopathy 06/08/2017 Overview (10/30/2021): Known DJD, ok for NSAIDs, physical therapy. BPH (benign prostatic hyperplasia) 06/08/2017 Overview (08/19/2023): Originally per pt he had hematuria, saw Dr Uribe in [place], still follows for BPH. Had bladder scans, GRAY, PSA testing. PSA nl November 2018, Mar 2020 Finally had laser TURP with Dr Alfaro Aug 2023 Assessment & Plan (12/26/2017 4:49 PM EDT): He is trying not to have TURP, rec'd by his PT. Erectile dysfunction 06/08/2017 Irritable bowel syndrome 06/08/2017 Resolved Problems Problem Noted Date Diagnosed Date Resolved Date Aortic valve insufficiency 06/08/2017 0 07/09/2019 Overview (01/02/2019): Stable, no sx. Assessment & Plan (12/19/2017 4:06 PM EDT): He has moderate to severe aortic insufficiency. I discussed the natural progression of this with him. He is asymptomatic at this time. We will continue to follow him. I told him to watch out for symptoms of shortness of breath or arrhythmia. I would like to get an annual echocardiogram. If his LV source to dilate then we would consider replacing his aortic valve and he may need a root repair at the same time. We will get an echocardiogram in April and I'll follow-up with him after that. Assessment & Plan (06/14/2017 4:09 PM EST): Dx on Echo, fall 2016 Assessment & Plan (06/13/2017 9:58 AM EST): Etiology unclear. Low threshold for ARB or PATIENCE inhibitor contingent on hemodynamics, but prefer to avoid beta janel in light of asthma. Reviewed condition, genetics (consider pediatric echocardiography), natural history, warning symptoms that were to medical attention, avoidance of high resistant competitive exercise, and probably of requiring aortic valve replacement surgery with aortic root at some point. Encounters Date Type Department Care Team Description 03/25/2025 11:03 AM EDT - 03/25/2025 11:59 PM EDT Hospital Encounter [facility] [address] [place] [address] Dakota Uribe MD Discharge Disposition: Home or Self Care 03/25/2025 Transcribe Orders [facility] [place] [address] Dakota Uribe MD Screening for prostate cancer (Primary Dx); Erectile dysfunction, unspecified erectile dysfunction type 02/21/2025 9:33 AM EDT - 02/21/2025 11:59 PM EDT Hospital Encounter [facility] [place] [address] Karen Dixon CNP Discharge Disposition: Home or Self Care 02/21/2025 9:00 AM EDT Office Visit [facility] [address] [place] [address] [place] [address] Karen Dixon CNP Pruritic condition (Primary Dx) 02/01/2025 Orders Only [facility] [address] Floor, [address] [place] [address] Rony Tierney MD S/P aortic valve replacement (Primary Dx) from Last 3 Months Immunizations Immunization Administration Dates Next Due COVID-19 (Pre-04/25) Moderna Vaccine, mRNA, PF 04/25/2021,08/23/2020,07/26/2020 COVID-19 Moderna Spikevax Vaccine 12+ 05/29/2024 ,05/04/2023 INFLUENZA, SPLIT VIRUS, TRIV ALENT W/ PRESERVATIVE IM 07/09/2010 Influenza High-Dose Quadriva lent Preservative Free IM 05/04/2023,04/15/2021,03/28/2020 Influenza High-Dose Trivalen t Preservative Free IM 08/21/2024,03/11/2017,05/31/2016,06/02 Influenza Quadrivalent Adjuv anted Preservative Free IM 06/02/2022 Influenza Quadrivalent Prese rvative Free IM 05/15/2017,05/24/2013 Influenza Quadrivalent w/ Pr eservative IM 05/01/2019,05/05/2018 Pneumococcal conjugate PCV13 12/26/2017 Pneumococcal polysaccharide PPSV23 01/02/2019 Tdap 02/17/2022,06/13/2007 Zoster live 06/14/2015,05/24/2013 Family History Medical History Relation Comments Heart failure Father Dementia Mother Relation Status Comments Father at 95. No c ongenital valve F.H. Mother Alive Social History Tobacco Use Types Packs/Day Years Used Date Smoking Tobacco: Never Smokeless Tobacco: Never Tobacco Cessation:Counseling Given: Not Answered Alcohol Use Standard Drinks/Week Comments Yes 2 [...] Not on file N ot on file Last Filed Vital Signs Vital Sign Reading Time Taken Comments Blood Pressure 105/64 02/21/2025 9:02 AM EDT Pulse 69 02/21/2025 9:02 AM EDT Temperature 36.5 C (97.7 F) 02/21/2025 9:02 AM EDT Respiratory Rate 14 10/12/2024 8:45 AM EDT Oxygen Saturation 98% 02/21/2025 9:02 AM EDT Inhaled Oxygen Concentration 40% 06/11/2019 4 :23 PM EST Weight 78 kg (172 lb) 02/21/2025 9:02 AM EDT Height 179 cm (5' 10.47 ) 02/21/2025 9:02 AM EDT Body Mass Index 24.35 02/21/2025 9:02 AM EDT Plan of Treatment Upcoming Encounters Date Type Department Care Team (Late st Contact Info) Description 06/04/2024 Procedure Pass [facility] [address] [place] [address] 02/01/2025 Procedure Pass [facility] [address] [place] [address] 04/08/2025 10:30 AM EDT Appointment Echo Lab [address] [place] [address] Filiberto Rivera MD [address] [place] [address], [address] [address] Rony Tierney MD [address] [place] [address] 04/12/2025 7:30 AM EDT Appointment [facility] [address] [place] [address] Rony Teirney MD [address] [place] [address] 05/06/2025 12:40 PM EST Office Visit [facility] [address] [place] [address] Dr [address] Floor, [address] [address] Rony Tierney MD [address] [place] [address] 06/14/2025 12:45 PM EST Office Visit [facility] [address] [place] [address] Unknown, Unknown, Ana Liu, ASSISTANT MERCHANDISER [address] [place] [address] Health Maintenance Due Date Last Done Comments COLOGUARD 1994 FIT TEST 1994 FOBT 1994 SIGMOIDOSCOPY 1994 VIRTUAL COLONOSCOPY 1994 ZOSTER VACCINES (2 of 3) 08/09/2015 06/14/2015, 05/05 RSV VACCINE (1 - 1-dose 75+ series) 2024 INFLUENZA VACCINE (#1) 2025 , 05/04/2023, 06/02/2022, Additional history exists COVID-19 VACCINE ( season) 2025 05/29/2024, 05/04/2023, 04/25/2021, Additional history exists COLONOSCOPY 03/24/2025 03/24/2018, 07/04/2013 COLORECTAL CANCER SCREENING 03/24/2025 DEPRESSION SCREENING 08/21/2025 08/21/2024 CREATININE LEVEL 02/21/2026 02/21/2025, 03/2025, 08/03/2024, Additional history exists LIPID PANEL 09/12/2028 09/12/2024, 07/06, 08/24/2023, Additional history exists Adult Td,Tdap Booster 02/18/2032 02/17/2022, 007 PNEUMOCOCCAL VACCINES (50+ years) Completed 01/02/2019, 12/26/2017 HEPATITIS C SCREENING Completed 03/31/2020 SMOKING STATUS SCREENING (Once After 26 Yrs) Completed 02/21/2025 HEPATITIS A VACCINES Aged Out No long er eligible based on patient's age to complete this topic HIB VACCINES Aged Out No longer eligi ble based on patient's age to complete this topic MENINGOCOCCAL VACCINES (ACWY) Aged Out No longer eligible based on patient's age to complete this topic MENINGOCOCCAL VACCINES (B) Aged Out N o longer eligible based on patient's age to complete this topic Medical Devices Implanted Type Area Meter Installer Device Identifier Shelf Expiration Date Model / Serial / Lot Graft Vascular 32mm 15cm Vascutek Gelweave Polyester Woven Straight Aortic Root Valsalva - [id number] Implanted:Qty: 1 on 06/11/2019 by Jefe Jensen MD at [facility] SMDA N/A: Heart [employer] 08/31/2021 [id number] / [id number] / [id number]; Mesh Graft 1.6x1.9in 4.1 4.8cm Lg Perfix Polypropylene Monofilament Plug Inguinal Hernia Soft Tissue Repair /2ea - [id number] Implanted:Qty: 1 on 05/26/2021 by Chrissy Patel MD at [facility] STANDARD Left: Groin DAVOL 08/31/2025 [id number] / / [id number] Right Foot Hardware Barnet Suture 4.5mm Arthroscopy Reelx Stt Peek Ss Core Knotless Shapr Tip Expandable Bx/5ea - [id number] Implanted:Qty: 3 on 11/16/2018 by Sushant Sommer DO at [facility] Acromial Process [employer] 08/01/2020 [id number] / / [id number] Barnet Suture 5.5mm Size 2 Intraline Titanium Force Fiber - [id number] Implanted:Qty: 1 on 11/16/2018 by Sushant Sommer DO at [facility] Acromial Process [employer] 03/23/2020 [id number] / / [id number] Valve Aortic Inspiris Resilia Bovine Pericardial Tissue 27mm - [id number] Implanted:Qty: 1 on 06/11/2019 by Jefe Jensen MD at [facility] N/A: Heart [employer] 12/19/2020 [id number] / [id number] / Procedures Procedure Name Priority Date/Time Associated Diagnosis Comments PSA (SCREENING) Routine 03/25/2025 11:12 AM EDT Erectile dysfunction, unspecified erectile dysfunction type COMPREHENSIVE METABOLIC PANEL Routine 02/21/2025 9:39 AM EDT Pruritic condition LIPID PANEL Routine 09/12/2024 9:23 AM EDT Amaurosis fugax of right eye HEPATITIS C ANTIBODY, QUALITATIVE Routine 03/31/2020 3:16 PM EDT Annual physical exam HM COLONOSCOPY FOR RESULT ENTRY ONLY Routine 03/24/2018 from Last 3 Months or Most Recently Relevant to Health Maintenance Results * PSA (screening) (03/25/2025 11:12 AM EDT) PSA 2.13 0 - 4.00 ng/mL [facility] Comment: Test Methodology Scott e801 Patient results determined by assays using different manufacturers or methods may not be comparable. Blood 03/25/2025 11:1 2 AM EDT 03/25/2025 11:15 AM EDT us Dakota Uribe MD LAB BLOOD ORDERABLES Final Result Performing Organization Address City/[facility]/ZIP Co de Phone Number [address] [address] * (ABNORMAL) Comprehensive metabolic panel (02/21/2025 9:39 AM EDT) SODIUM 141 133 - 146 mmol/L [facility] POTASSIUM 4.0 3.3 - 5.1 mmol/L [facility] CHLORIDE 105 96 - 108 mmol/L [facility] CO2 24 21 - 35 mmol/L [facility] BUN 24(H) 6 - 19 mg/dL [facility] CREATININE 1.10 0.5 - 1.5 mg/dL [facility] GLUCOSE 83 70 - 99 mg/dL [facility] ALBUMIN 4.0 3.9 - 4.8 g/dL [facility] TOTAL PROTEIN 6.8 6.5 - 8.0 g/dL [facility] CALCIUM 8.7 8.4 - 10.3 mg/dL [facility] ALKALINE PHOSPHATASE 79 39 - 117 U/L [facility] TOTAL BILIRUBIN 0.7 0.0 - 1.2 mg/dL [facility] AST 28 0 - 37 U/L [facility] ALT 20 0 - 40 U/L [facility] GLOBULIN 2.8 1 - 4.8 g/dL [facility] EGFR 70 >59 mL/min/1.7 3m2 [facility] Comment:Estimated glomerular filtration rate calculated using the CKD-EPI refit equation. ANION GAP 16 10 - 20 mmol/L [facility] Blood 02/21/2025 9:39 AM EDT 02/21/2025 9:42 AM EDT us Karen Dixon CNP LAB BLOOD ORDERABLES Kristen l Result Performing Organization Address City/[facility]/ZIP Co de Phone Number [address] [address] * (ABNORMAL) Lipid panel (09/12/2024 9:23 AM EDT) [facility] HDL 56 mg/dL [facility] Comment: Interpretation <40 mg/dL: Low HDL cholesterol (major risk factor for CHD) Greater than or equal to 60 mg/dL: High HDL cholesterol ( negative risk factor for CHD) HDL - cholesterol is affected by a number of factors, e.g. smoking, excerise, hormones, sex and age. CHOLESTEROL 123 0 - 240 mg/dL [facility] TRIGLYCERIDES 69 30 - 160 mg/dL [facility] LDL 53 50 - 129 mg/dL [facility] Comment: LDL levels in terms of risk for coronary heart disease: <100 mg/dL: Optimal 100-129 mg/dL: Near or above optimal 130-159 mg/dL: Borderline high 160-189 mg/dL: High >190 mg/dL: Very High CARDIAC RISK RATIO 2.2(L) 3.4 - 5.0 C [facility] Blood 09/12/2024 9:23 AM EDT 09/12/2024 9:27 AM EDT us Jose Cunningham MD LAB BLOOD ORDERABLES Final Resu lt Performing Organization Address City/[facility]/ZIP Co de Phone Number [address] [address] * Hepatitis C antibody, qualitative (03/31/2020 3:16 PM EDT) [facility] HCV NON-REACTIV E NON-REACTI VE [facility] Blood 03/31/2020 3:16 PM EDT 03/31/2020 3:19 PM EDT us Jose Cunningham MD LAB BLOOD ORDERABLES Final Resu lt Performing Organization Address City/[facility]/ZIP Co de Phone Number [address] [address] * COLONOSCOPY FOR RESULT ENTRY ONLY (03/24/2018) HM Colonoscopy 10 years us Historical Provider HEALTH MAINTENANCE Final Result from Last 3 Months or Most Recently Relevant to Health Maintenance Insurance MEDICARE PART A & B [facility] [employer]ION MEDICARE SUPPLEMENT MEDICARE PART A & B [facility] [employer]) EXTENSION MEDICARE SUPPLEMENT MEDICARE PART A & B [facility] [employer] MEDICARE SUPPLEMENT MEDICARE PART A & B [employer] MEDICARE SUPPLEMENT MEDICARE PART A & B [facility] [employer]ION MEDICARE SUPPLEMENT MEDICARE PART A & B [facility] MEDICARE SUPPLEMENT MEDICARE PART A & B [employer] [facility] MEDICARE SUPPLEMENT MEDICARE PART A & B [employer] MEDICARE SUPPLEMENT MEDICARE PART A & B [facility] MEDICARE SUPPLEMENT Advance Directives For more information, please contact: [phone] (9AM - 5PM [place]issy[place], Tuesday-Tuesday) Documents on File Type Date Recorded Patient Tester Regulator Expl anation Healthcare Proxy 09/21/2021 Healthcare Proxy * Full Code (Latest Code Status on File) Date Activated Date Inactivated Comments 05/26/2021 9:21 AM Question Answer Comments Code Status Confirmed With: Patient * Full Code (Presumed) Date Activated Date Inactivated Comments 06/11/2019 1:26 PM 06/16/2019 5:42 PM * Full Code (Presumed) Date Activated Date Inactivated Comments 11/16/2018 8:25 AM 11/16/2018 3:59 PM Care Teams Interline Clerk Relationship Specialty Start Date End Date Jose Cunningham MD [address] [place] [address], [address] [place] [address] PCP - General Internal Medicine 03/14/20 Dakota Uribe MD Urology 05/23/19 Filiberto Rivera MD [address] [place] [address], [address] [place] [address] Security System Technician Cardiology 05/23/19 Additional Source Comments The information contained in this document represents components of the legal health record. It is not the complete legal health record.[facility]
--- OUTSIDE RECORDS SUMMARY | 2025-04-02 14:50 | XMS_ITS | Encounter Summary ---
Author Organization [facility] Address [address] [place] [address] [place] [address] Phone Care Team Providers Care Customs Manager Name Role Phone Dakota Uribe MD Unavailable Filiberto Rivera MD Unavailable [phone] Jose Cunningham MD Primary Care Provider [phone] Encounter Details Date Type Department Care Team (Late st Contact Info) Description 08/02/2024 Procedure Pass [address] [place] [address] Social History Tobacco Use Types Packs/Day Years [...] ecorded Denied Basic Needs Not on file 08/19/2023 In the past 12 months have y ou been in a relationship with a person who hurts, threatens, or tries to control you? No 08/19/2023 Worried food would run out Not on file 08/19 In the past 12 months have y ou been in a relationship with a person who hurts, threatens, or tries to control you? No 08/19/2023 Sex and Gender Information Value Date Recorded [...] Info) Description 06/04/2024 Procedure Pass [facility] [address] [place] [address] 02/01/2025 Procedure Pass [facility] Cardiovascular And Interventional Radiology [address] [place] [address] 04/08/2025 10:30 AM EDT Appointment Echo Lab [address] [place] [address] Filiberto Rivera MD [address] [place] [address], [address] [address] Rony Tierney MD [address] [place] [address] 04/12/2025 7:30 AM EDT Appointment [facility] Cardiovascular And Interventional Radiology [address] [place] [address] Rony Tierney MD [address] [place] [address] 05/06/2025 12:40 PM EST Office Visit [facility] [address] [place] [address] Dr [address] Floor, [address] [address] Rony Tierney MD [address] [place] [address] 06/14/2025 12:45 PM EST Office Visit [facility] [address] [place] [address] Unknown, Unknown, Ana Liu, WEB ANALYTICS DEVELOPER [address] [place] [address] [email or web address] documented as of this encounter Visit Diagnoses Not on filedocumented in this encounter Additional Health Concerns Assessment Noted Time PHQ-2 Depression Total Score: 0 08/21/19 25 11:09 AM EST documented as of this encounter Care Teams Customs Manager Relationship Specialty Start Date End Date Jose Cunningham MD [address] [place] [address], [address] [place] [address] [email or web address] PCP - General Internal Medicine 03/14/20 Dakota Uribe MD Urology 05/23/19 Filiberto Rivera MD [address] [place] [address], [address] [place] [address] [email or web address] [employer] And [employer] [facility] 05/23/19 documented as of this encounter Additional Source Comments The information contained in this document represents components of the legal health record. It is not the complete legal health record.[facility]
--- OUTSIDE RECORDS SUMMARY | 2025-04-02 14:50 | XMS_ITS | Encounter Summary ---
Author Organization [facility] Address [address] [place] [address] [place] [id number] Phone Care Team Providers Care Batch Or Continuous Still Operator Name Role Phone Dakota Uribe MD Unavailable [phone] Filiberto Rivera MD Unavailable [phone] Jose Cunningham MD Primary Care Provider [phone] Encounter Details Date Type Department Care Team (Late st Contact Info) Description 08/21/2024 Procedure Pass [address] [place] [address] Social History Tobacco Use Types Packs/Day Years [...] Info) Description 06/04/2024 Procedure Pass [facility] [address] [place] [address] 02/01/2025 Procedure Pass [facility] Cardiovascular And Interventional Radiology [address] [place] [phone] 04/08/2025 10:30 AM EDT Appointment Echo Lab [address] [place] [address] Filiberto Rivera MD [address] [place] [address], [address] [address] Rony Tierney MD [address] [place] [address] 04/12/2025 7:30 AM EDT Appointment [facility] Cardiovascular And Interventional Radiology [address] [place] [id number] Rony Tierney MD [address] [place] [id number] 05/06/2025 12:40 PM EST Office Visit [facility] [address] [place] [address] Dr [address] Floor, [address] [address] Rony Tierney MD [address] [place] [phone] 06/14/2025 12:45 PM EST Office Visit [facility] [address] [place] [address] Unknown, Unknown, nAa Liu, COMMERCIAL ARTIST [address] [place] [address] [email or web address] documented as of this encounter Visit Diagnoses Not on filedocumented in this encounter Additional Health Concerns Assessment Noted Time PHQ-2 Depression Total Score: 0 08/21/19 25 11:09 AM EST documented as of this encounter Care Teams Batch Or Continuous Still Operator Relationship Specialty Start Date End Date Jose Cunningham MD [address] [place] [address], [address] [place] [address] [email or web address] PCP - General Internal Medicine 03/14/20 Dakota Uribe MD Urology 05/23/19 Filiberto Rivera MD [address] [place] [address], [address] [place] [address] [email or web address] Retail Support Associate Cardiology 05/23/19 documented as of this encounter Additional Source Comments The information contained in this document represents components of the legal health record. It is not the complete legal health record.[facility]
== END 2025-04-02 15:20 | disposition home or self-care (01) ==
LOC: HO.HUSH 13:33
PROVIDERS: PCP Internal Medicine; Visit Provider Urology
DX: N40.1 Benign prostatic hyperplasia with lower urinary tract symptoms (principal); N13.8 Other obstructive and reflux uropathy; R35.1 Nocturia; R39.12 Poor urinary stream

== ENCOUNTER → 2025-04-02 13:33 | Outpatient (BNVA) | payer MEDICARE, OTHER, SELFPAY | PROVIDERS: PCP Internal Medicine; Visit Provider Urology | DX: N40.1 Benign prostatic hyperplasia with lower urinary tract symptoms (principal); R35.1 Nocturia; N13.8 Other obstructive and reflux uropathy; N52.9 Male erectile dysfunction, unspecified; R39.12 Poor urinary stream | CPT/HCPCS: 51798; 81003; 99212 ==